=== PATIENT | female | born 1945 | race Caucasian/White ===

== ENCOUNTER 2017-08-14 17:54 | Emergency (ER) | payer MEDICARE, OTHER ==
--- NOTE | 2017-08-14 18:12 | ERNOTE ---
Lower Extremity HPI - Narrative Date of Service: 08/14/17 - General Lower Extremities Pain: 2nd toe: left - Patient denies any pain whatsoever. Time Seen by Provider: 08/14/17 18:04 Source: patient, EMS Exam Limitations: no limitations - Immun/Allergies/Home Medications Immunizations: IMMUNIZATION HX Immunizations Up to Date Yes History of Influenza Vaccine Yes Hx Pneumococcal Vaccination No Allergies/Adverse Reactions: Allergies Allergy/AdvReac Type Severity Reaction Status Date / Time amitriptyline [Amitriptyline] Allergy Intermediate Other Verified 08/26/16 11:18 Penicillins Allergy Intermediate Other Verified 08/26/16 11:18 duloxetine HCl Allergy Verified 08/26/16 11:18 [From Cymbalta] duloxetine [Duloxetine] AdvReac Intermediate Other Verified 08/26/16 11:18 nortriptyline [Nortriptyline] AdvReac Intermediate Other Verified 08/26/16 11:18 tramadol AdvReac Intermediate Nausea Verified 08/26/16 11:18 gemfibrozil [Gemfibrozil] AdvReac Mild Nausea Verified 08/26/16 11:18 morphine AdvReac Mild Vomiting Verified 08/26/16 11:18 oxycodone HCl [From Percocet] AdvReac Verified 08/26/16 11:18 propoxyphene napsylate AdvReac Verified 08/26/16 11:18 [From Darvocet-N] Home Medications: HOME MEDICATIONS Allopurinol [Zyloprim] 300 mg PO DAILY 12/09/12 [Last Taken 09/01/14] Venlafaxine HCl [Effexor Xr] 150 mg PO DAILY 02/03/13 [Last Taken 09/01/14] Carbidopa/Levodopa 25/100 [Sinemet 25/100] 1.5 tab PO TID 04/19/13 [Last Taken 09/01/14] Cholecalciferol [Vitamin D] 2,000 unit PO DAILY #0 capsule 04/29/13 [Last Taken 09/01/14] Metoprolol Tartrate [Lopressor] 100 mg PO BID #0 tablet 05/08/13 [Last Taken 03/10] Sennosides/Docusate Sodium [Senokot-S] 2 tab PO BID 09/01/14 [Last Taken ] Cyanocobalamin [Vitamin B-12] 1,000 mcg PO DAILY 09/02/14 [Last Taken 09/01/14] Polyethylene Glycol 3350 [Miralax] 17 gm PO BID PRN 09/02/14 [Last Taken Unknown ] Menthol [Biofreeze] 1 appl TP QID 09/03/14 [Last Taken Unknown] buPROPion HCL [Wellbutrin Sr, Zyban] 150 mg PO BID 09/03/14 [Last Taken Unknown] Furosemide [Lasix] 80 mg PO BID 08/26/16 [Last Taken Unknown] Hydrochlorothiazide [Microzide] 12.5 mg PO DAILY 08/26/16 [Last Taken Unknown] Insulin Detemir [Levemir] 110 unit SQ BID 08/26/16 [Last Taken Unknown] Levothyroxine Sodium [Synthroid] 125 mcg PO DAILY 08/26/16 [Last Taken Unknown] Magnesium Hydroxide [Milk of Magnesia] 15 ml PO DAILY PRN 08/26/16 [Last Taken Unknown] Omeprazole 40 mg PO DAILY 08/26/16 [Last Taken Unknown] Pazopanib HCl [Votrient] 800 mg PO DAILY 08/26/16 [Last Taken Unknown] Pregabalin [Lyrica] 50 mg PO BID 08/26/16 [Last Taken Unknown] ALPRAZolam [Xanax] 1 mg PO BID PRN #60 tablet 08/31/16 [Last Taken Unknown] Acetaminophen [Tylenol] 1,000 mg PO Q8H PRN #0 tablet 08/31/16 [Last Taken Unknown] Divalproex Sodium [Depakote ER] 250 mg PO DAILY tab.sr.24h 08/31/16 [Last Taken Unknown] Enoxaparin Sodium [Lovenox] 40 mg SC Q24H #30 disp.syrin 08/31/16 [Last Taken Unknown] Ferrous Sulfate 325 mg PO BID #60 tablet 08/31/16 [Last Taken Unknown] Insulin Lispro [Humalog] 0 - 30 units SQ ACHS 30 Days vial 08/31/16 [Last Taken Unknown] Lisinopril [Zestril] 20 mg PO BID #60 tablet 08/31/16 [Last Taken Unknown] Multivitamins [Multivitamin Shen] 1 cap PO DAILY #30 capsule 08/31/16 [Last Taken Unknown] Psyllium Husk (with Sugar) [Metamucil] 1 each PO DAILY packet 08/31/16 [Last Taken Unknown] oxyCODONE HCL/ACETAMINOPHEN [Percocet 5 MG/325 MG] 1 tab PO QID PRN #100 tablet 08/31/16 [Last Taken Unknown] - History of Present Illness Narrative: RESEARCH RN SPEC felt that the left 2nd digit was bruised and should be evaluated. Patient states she wished to wait until Wednesday but RESEARCH RN SPEC felt it should be done tonight. States she has had a discolored toe for weeks which will become a deeper purple after having shoes on during the day but will lighten up by morning. Denies any pain or loss of sensation. States she has not injured the toe. States she has no changes of the toe today. Occurred: other - Several weeks ago began to turn purple. Method of Injury: Reports: other - No injury Reason for Fall: Reports: other - No fall. Usually resides in wheel chair but will stand and pivot. Modifying Factors - (Improves): Reports: other - Will be less purple with rest and leg elevation. Modifying Factors - (Worsens): Reports: other - Becomes darker purple with the foot dependent. Associated Symptoms: Reports: none Other Injuries: Reports: none Subsequent Symptoms: Reports: other - No sensory or motor loss. Review of Systems - Narrative Narrative: Patient is denying any symptoms. States she has complete feeling in her toes and denies any pain or trauma. Denies any other symptoms whatsoever. - Review of Systems Constitutional: Present: no symptoms reported Respiratory: Present: no symptoms reported Cardiology: Present: no symptoms reported Gastrointestinal/Abdominal: Present: other - States she has an annoying abdominal hernia without discomfort. Musculoskeletal: Present: other - States she has not ambulated since her left femur fracture exactly 1 yr ago. Skin: Present: other - Ecchymosis without pain or trauma of the left 2nd toe. Denies any loss of sensation Endocrine: Present: no symptoms reported Hematologic/Lymphatic: Present: easy bruising - Patient's Past Medical History Patient History - Medical: Anemia, Diabetes Type 2, Depression, GERD, Obesity, Osteoarthritis Patient History - Cardiac/Respiratory: No pertinent hx Patient History - Cancer: Kidney Patient History - Surgical Procedures: Back Surgery, Total Knee Replacement Patient History - Other: None LMP (females 10-50): Menopausal - Family History Father Family History - Medical: Mother Family History - Medical: - Social History Living Situations: long term Psych History: Hx of Depression - Immunizations Immunizations Up to Date: Yes Hx Pneumococcal Vaccination: No History of Influenza Vaccine: Yes Physical Exam - Physical Exam Narrative: No signs of trauma or other complications involving the toe. General Appearance: Present: wd/wn, alert, no apparent distress Respiratory: Present: no respiratory distress Extremity Exam: Present: non-tender, normal range of motion, other - Patient has ecchymosis extending from the MTP joint up into the IP joint. Patient has complete pain free ROM with no abnormal bony structure noted. Am able to manually manipulate the toe with no grimacing or discomfort from the patient. No ulceration found. Sensation completely intact. Toe is not cold nor hot. No redness. Cap refill <2 seconds. Neurological Exam: Present: alert, normal mood/affect, other - No focal deficits. Skin Exam: Present: warm/dry - Echymosis as described above. No other indications of complications. ED Progress - Vital Signs Patient's Vital Signs:: I have reviewed the patient's vital signs. Vital Signs: Vital Signs 08/14/17 17:57 Temperature 36.7 C Pulse Rate 98 Respiratory 15 Rate Blood Pressure 119/74 O2 Sat by Pulse 97 Oximetry - Progress/Reassessment Chief Complaint: Lower Extremity Pain/ Injury Progress:: Unchanged Progress Note-Subjective: 08/14/17 18:42 No acute intervention needed. Departure Clinical Impression: Ecchymosis on examination - Departure Disposition: Home Follow Up Needed Condition: Good Additional Instructions: No indication of any injury, loss of circulation, ulceration or other complication. No further testing needed at this time. Follow up with family provider in 2-3 days. Sooner if needed. Keep both legs elevated as much as possible. Referrals: Rob Montaño MD [Primary Care Provider] -
[2017-08-14 18:38] VITALS: BP 142/53
== END 2017-08-14 19:17 | disposition home or self-care (01) ==
LOC: ER 17:54
DX: S90.12 Contusion of lesser toe without damage to nail (principal)

== ENCOUNTER 2017-11-26 17:04 | Emergency (ER) | payer MEDICARE, OTHER ==
[2017-11-26] MEDS ORDERED: DIAZEPAM 5 MG/ML SYRG IV ONE (17:16)
[2017-11-26] MEDS ORDERED: KETOROLAC TROMETHAMINE 30 MG/ML VIAL IV ONE (17:18)
[2017-11-26] MEDS ORDERED: ORPHENADRINE CITRATE 30 MG/ML VIAL IV ONE (17:18)
[2017-11-26] MEDS ORDERED: LORazepam 2 MG/ML DISP.SYRIN IV ONE (17:19)
[2017-11-26] MEDS ORDERED: LORazepam 2 MG/ML DISP.SYRIN ONE (17:21)
[2017-11-26] MEDS ORDERED: ORPHENADRINE CITRATE 30 MG/ML VIAL ONE (17:21)
[2017-11-26] MEDS ORDERED: KETOROLAC TROMETHAMINE 30 MG/ML VIAL ONE (17:21)
--- NOTE | 2017-11-26 17:27 | ERNOTE ---
Back Pain ER HPI Presenting Symptoms: hx chronic back pain Time Seen by Provider: 11/26/17 17:09 Source: patient, EMS Exam Limitations: no limitations Immunizations: IMMUNIZATION HX Immunizations Up to Date Yes History of Influenza Vaccine Yes Hx Pneumococcal Vaccination Yes Allergies/Adverse Reactions: Allergies amitriptyline [Amitriptyline] Allergy (Intermediate, Verified 08/26/16 11:18) Other "makes crazy" Penicillins Allergy (Intermediate, Verified 08/26/16 11:18) Other rash duloxetine HCl [From Cymbalta] Allergy (Verified 08/26/16 11:18) duloxetine [Duloxetine] Adverse Reaction (Intermediate, Verified 08/26/16 11:18) Other palpatations dizziness nortriptyline [Nortriptyline] Adverse Reaction (Intermediate, Verified 08/26/16 11:18) Other "makes crazy" tramadol Adverse Reaction (Intermediate, Verified 08/26/16 11:18) Nausea gemfibrozil [Gemfibrozil] Adverse Reaction (Mild, Verified 08/26/16 11:18) Nausea diarrhea morphine Adverse Reaction (Mild, Verified 08/26/16 11:18) Vomiting oxycodone HCl [From Percocet] Adverse Reaction (Verified 08/26/16 11:18) propoxyphene napsylate [From Darvocet-N] Adverse Reaction (Verified 08/26/16 11: 18) Home Medications: HOME MEDICATIONS Allopurinol [Zyloprim] 300 mg PO DAILY 12/09/12 [Last Taken 09/01/14] Venlafaxine HCl [Effexor Xr] 150 mg PO DAILY 02/03/13 [Last Taken 09/01/14] Carbidopa/Levodopa 25/100 [Sinemet 25/100] 1.5 tab PO TID 04/19/13 [Last Taken 09/01/14] Cholecalciferol [Vitamin D] 2,000 unit PO DAILY #0 capsule 04/29/13 [Last Taken 09/01/14] Metoprolol Tartrate [Lopressor] 100 mg PO BID #0 tablet 05/08/13 [Last Taken 03/10] Sennosides/Docusate Sodium [Senokot-S] 2 tab PO BID 09/01/14 [Last Taken ] Cyanocobalamin [Vitamin B-12] 1,000 mcg PO DAILY 09/02/14 [Last Taken 09/01/14] Polyethylene Glycol 3350 [Miralax] 17 gm PO BID PRN 09/02/14 [Last Taken Unknown ] Menthol [Biofreeze] 1 appl TP QID 09/03/14 [Last Taken Unknown] buPROPion HCL [Wellbutrin Sr, Zyban] 150 mg PO BID 09/03/14 [Last Taken Unknown] Furosemide [Lasix] 80 mg PO BID 08/26/16 [Last Taken Unknown] Hydrochlorothiazide [Microzide] 12.5 mg PO DAILY 08/26/16 [Last Taken Unknown] Insulin Detemir [Levemir] 110 unit SQ BID 08/26/16 [Last Taken Unknown] Levothyroxine Sodium [Synthroid] 125 mcg PO DAILY 08/26/16 [Last Taken Unknown] Magnesium Hydroxide [Milk of Magnesia] 15 ml PO DAILY PRN 08/26/16 [Last Taken Unknown] Omeprazole 40 mg PO DAILY 08/26/16 [Last Taken Unknown] Pazopanib HCl [Votrient] 800 mg PO DAILY 08/26/16 [Last Taken Unknown] Pregabalin [Lyrica] 50 mg PO BID 08/26/16 [Last Taken Unknown] ALPRAZolam [Xanax] 1 mg PO BID PRN #60 tablet 08/31/16 [Last Taken Unknown] Acetaminophen [Tylenol] 1,000 mg PO Q8H PRN #0 tablet 08/31/16 [Last Taken Unknown] Divalproex Sodium [Depakote ER] 250 mg PO DAILY tab.sr.24h 08/31/16 [Last Taken Unknown] Enoxaparin Sodium [Lovenox] 40 mg SC Q24H #30 disp.syrin 08/31/16 [Last Taken Unknown] Ferrous Sulfate 325 mg PO BID #60 tablet 08/31/16 [Last Taken Unknown] Insulin Lispro [Humalog] 0 - 30 units SQ ACHS 30 Days vial 08/31/16 [Last Taken Unknown] Lisinopril [Zestril] 20 mg PO BID #60 tablet 08/31/16 [Last Taken Unknown] Multivitamins [Multivitamin Shen] 1 cap PO DAILY #30 capsule 08/31/16 [Last Taken Unknown] Psyllium Husk (with Sugar) [Metamucil] 1 each PO DAILY packet 08/31/16 [Last Taken Unknown] oxyCODONE HCL/ACETAMINOPHEN [Percocet 5 MG/325 MG] 1 tab PO QID PRN #100 tablet 08/31/16 [Last Taken Unknown] Narrative: Patient comes in from the [facility] facility having a panic attack. Patient has chronic low back pain that has been following her for quite some time and that always presents itself as a problem. She has chronic paraspinal spasm that is present today as well. He rates the pain at her usual baseline with flares up and perhaps a 7/10. Her primary complaint is tomorrow' s coming up on would be her 45th anniversary of marriage to her and she has been perseverating over that and in at least moderate to severe emotional distress. Timing: Reports: constant Quality/Severity: Reports: moderate, severe Location of pain: Reports: lower back Activities at Onset: Reports: emotional stress Recent Injury?: Reports: no Possible Precipitating Factor: Reports: none Modifying Factors - (Improves): Reports: nothing Modifying Factors - (Worsens): Reports: nothing Review of Systems - Review of Systems Constitutional: Present: See HPI EYE: Present: no symptoms reported ENT: Present: no symptoms reported Respiratory: Present: no symptoms reported Cardiology: Present: no symptoms reported Gastrointestinal/Abdominal: Present: no symptoms reported Genitourinary: Present: no symptoms reported Musculoskeletal: Present: See HPI Skin: Present: no symptoms reported Neurological: Present: no symptoms reported Endocrine: Present: no symptoms reported Hematologic/Lymphatic: Present: no symptoms reported Psych: Present: anxiety, emotional problems - Patient's Past Medical History Patient History - Medical: Anemia, Anxiety, Diabetes Type 2, Depression, GERD, Obesity, Osteoarthritis, Other - chronic back pain Patient History - Cardiac/Respiratory: No pertinent hx Patient History - Cancer: Kidney Patient History - Surgical Procedures: Back Surgery, Total Knee Replacement Patient History - Other: None LMP (females 10-50): Menopausal - Family History Father Family History - Medical: Mother Family History - Medical: - Social History Living Situations: assisted living Psych History: Hx of Depression Smoking Status: Former smoker Have you smoked in the past 12 months: No Do you dip or chew tobacco: No Alcohol Use: none Drug Use: none - Immunizations Immunizations Up to Date: Yes Hx Pneumococcal Vaccination: Yes History of Influenza Vaccine: Yes Physical Exam - Physical Exam General Appearance: Present: wd/wn, alert, moderate distress Head Exam: Present: normal inspection, no evidence of injury Eye Exam: Normal inspection: bilateral, PERRL: bilateral Ears, Nose, Throat: Present: normal ENT inspection, H, normal pharynx Neck: Present: normal inspection, nontender Respiratory: Present: no respiratory distress, normal breath sounds, no accessory muscle use, chest nontender, lungs clear Cardiovascular/Chest: Present: regular rate, rhythm, no murmur, normal peripheral pulses Gastrointestinal/Abdominal: Present: normal bowel sounds, nontender, nondistended, soft, no organomegaly Rectal Exam: Present: deferred Back Exam: Present: normal inspection, normal range of motion Extremity Exam: Present: normal inspection, non-tender, no edema, normal range of motion Neurological Exam: Present: alert, oriented, normal mood/affect, other - patient is having a panic attack Skin Exam: Present: normal color, warm/dry Lymphatic Exam: Present: no adenopathy ED Progress - Vital Signs Patient's Vital Signs:: I have reviewed the patient's vital signs. Vital Signs: Vital Signs 11/26/17 17:09 Temperature 37 C Pulse Rate 73 Respiratory 24 H Rate Blood Pressure 101/83 O2 Sat by Pulse 100 Oximetry - Progress/Reassessment Chief Complaint: Back Pain Progress:: Improved Plan - Plan Plan: Patient's back pain was considerably better with Toradol and Norflex and her panic attack resolved after 1 mg of Ativan. Patient will be returned to the care facility with a prescription for Xanax 1 mg twice a day and Flexeril 10 mg twice a day. All further medication will be under the direction of her family doctor. Departure Clinical Impression: Panic attack Chronic back pain Qualifiers: Back pain location: low back pain Back pain laterality: bilateral Sciatica presence: without sciatica Qualified Code(s): M54.5 - Low back pain; G89.29 - Other chronic pain; G89.29 - Other chronic pain - Departure Disposition: Nursing Facility, Not [facility] Condition: Good Instructions: Chronic Back Pain, Panic Attacks, [id number] Referrals: Declan Rivas DO [Primary Care Provider] -
[2017-11-26 19:05] VITALS: BP 140/74
== END 2017-11-26 19:03 ==
LOC: ER 17:04
DX: Z87.891 Personal history of nicotine dependence; M54.5 Low back pain; F41.0 Panic disorder [episodic paroxysmal anxiety]; G89.29 Other chronic pain; Z85.528 Personal history of other malignant neoplasm of kidney

== ENCOUNTER 2018-04-05 11:40 | Observation (INO) | payer MEDICARE, OTHER ==
[2018-04-05 12:28] LABS: Hematocrit 29.6 % (37.0-47.0); Hemoglobin 9.3 gm/dL (12.5-16.0); Mean Cell Volume 101.4 fl (78-100); Mean Corpuscular Hemoglobin 31.8 pg (27-31); Mean Corpuscular Hgb Conc 31.4 g/dl (32-36); Mean Platelet Volume 10.2 fl (8-12.5); Platelet Count 203 K/mm3 (150-450); Red Blood Count 2.92 M/mm3 (4.2-5.4); Red Cell Distribution Width 18.3 % (11.5-14.0); White Blood Count 13.2 K/mm3 (4.0-10.5)
[2018-04-05 12:30] LABS: Total Cells Counted 100
[2018-04-05 12:44] LABS: ALT 27 U/L (19-67); AST 25 U/L (0-48); Alkaline Phosphatase * 126 U/L (50-170); Anion Gap 10.4 mmol/L (6.8-13.8); BNP * 1865 pg/mL (5-325); BUN/Creatinine Ratio 24.2 (9.0-21.6); Bilirubin, Total 0.5 mg/dL (0.0-1.1); Blood Urea Nitrogen 22 mg/dL (3-23); Ca. Corrected For Albumin 10.2 mg/dL (8.4-10.2); Calcium * 9.7 mg/dL (7.9-10.9); Carbon Dioxide 34.5 mmol/L (24-32.6); Chloride 95 mmol/L (97-106); Glucose * 147 mg/dL (70-110); Potassium 2.9 mmol/L (3.4-4.6); Sodium 137 mmol/L (132-142); Total Protein 6.7 gm/dL (6.2-8.2); Troponin I Less than 0.017 ng/ml (0.00-0.10)
[2018-04-05 13:02] LABS: Band 6 % (0-2.0); Eosinophil 3 % (0-3); Lymphocyte 14 % (20-51); Monocyte 9 % (0-9); Neutrophil 68 % (42-75)
[2018-04-05 13:03] LABS: Anisocytosis 1+; Hypersegmented Polys Trace; Hypochromia 1+; Target Cells 2+
[2018-04-05 13:04] LABS: Macrocytosis 2+; Platelet Estimate Normal (NORMAL); Polychromasia 1+
[2018-04-05] MEDS ORDERED: FUROSEMIDE 10 MG/ML VIAL IV ONE (14:17)
[2018-04-05] MEDS ORDERED: POTASSIUM CHLORIDE 20 MEQ TABLET.SA PO ONE (14:17)
--- NOTE | 2018-04-05 14:27 | ERNOTE ---
Dyspnea - Date Date of Service: 04/05/18 - General Presenting Symptoms: other - Weight gain Time Seen by Provider: 04/05/18 11:55 Source: patient, RN notes reviewed Exam Limitations: no limitations - Immun/Allergies/Home Medications Immunizations: IMMUNIZATION HX Immunizations Up to Date Yes History of Influenza Vaccine Yes Hx Pneumococcal Vaccination Yes Allergies/Adverse Reactions: Allergies amitriptyline [Amitriptyline] Allergy (Intermediate, Verified 08/26/16 11:18) Other "makes crazy" Penicillins Allergy (Intermediate, Verified 08/26/16 11:18) Other rash duloxetine HCl [From Cymbalta] Allergy (Verified 08/26/16 11:18) duloxetine [Duloxetine] Adverse Reaction (Intermediate, Verified 08/26/16 11:18) Other palpatations dizziness nortriptyline [Nortriptyline] Adverse Reaction (Intermediate, Verified 08/26/16 11:18) Other "makes crazy" tramadol Adverse Reaction (Intermediate, Verified 08/26/16 11:18) Nausea gemfibrozil [Gemfibrozil] Adverse Reaction (Mild, Verified 08/26/16 11:18) Nausea diarrhea morphine Adverse Reaction (Mild, Verified 08/26/16 11:18) Vomiting oxycodone HCl [From Percocet] Adverse Reaction (Verified 08/26/16 11:18) propoxyphene napsylate [From Darvocet-N] Adverse Reaction (Verified 08/26/16 11: 18) Home Medications: HOME MEDICATIONS ALPRAZolam [Xanax] 1 mg PO DAILY 12/31/17 [Last Taken Unknown] Acetaminophen [Tylenol] 1,000 mg PO Q8H PRN 12/31/17 [Last Taken Unknown] Allopurinol [Zyloprim (Allopurinol)] 100 mg PO DAILY 12/31/17 [Last Taken Unknown] Bupropion HCl [Bupropion HCl ER] 150 mg PO DAILY 12/31/17 [Last Taken Unknown] Calcium Carbonate [Calcium] 1 tab PO TID 12/31/17 [Last Taken Unknown] Cholecalciferol (Vitamin D3) [Vitamin D3] 50,000 unit PO FR 12/31/17 [Last Taken Unknown] Clonidine HCl [Clonidine HCl ER] 1 tab PO BID 12/31/17 [Last Taken Unknown] Cyclobenzaprine HCl 10 mg PO BID 12/31/17 [Last Taken Unknown] Fluticasone Propionate [Flonase Allergy Relief] 1 spray NS DAILY 12/31/17 [Last Taken Unknown] Furosemide [Lasix] 80 mg PO BID 12/31/17 [Last Taken Unknown] Insulin Detemir [Levemir] 90 units SC BID 12/31/17 [Last Taken Unknown] Insulin Regular, Human [Novolin R] 12 units SC TID 12/31/17 [Last Taken Unknown] Insulin Regular, Human [Novolin R] See Protocol SC ACHS 12/31/17 [Last Taken Unknown] Levothyroxine Sodium [Levoxyl] 125 mcg PO QAM 12/31/17 [Last Taken Unknown] Magnesium Hydroxide [Milk Of Magnesia] 30 ml PO 3XW 12/31/17 [Last Taken Unknown ] Menthol [[place] Cough Drops] 1 lozenge MM PRN PRN 12/31/17 [Last Taken Unknown] Metoprolol Tartrate 50 mg PO BID 12/31/17 [Last Taken Unknown] Multivitamin with Minerals [Multivitamins with Minerals] 1 each PO DAILY [Last Taken Unknown] Omeprazole 40 mg PO QAM 12/31/17 [Last Taken Unknown] Potassium Chloride 20 meq PO BID 12/31/17 [Last Taken Unknown] Pregabalin [Lyrica] 50 mg PO DAILY 12/31/17 [Last Taken Unknown] Sennosides/Docusate Sodium [Senna-Docusate Sodium Tablet] 2 tab PO BID 12/31/17 [Last Taken Unknown] Sodium Chloride [Saline Nose [place]] 1 spray NS QPM 12/31/17 [Last Taken Unknown] Venlafaxine HCl [Venlafaxine HCl ER] 75 mg PO QAM 12/31/17 [Last Taken Unknown] hydrALAZINE HCL [Hydralazine HCl] 50 mg PO QID 12/31/17 [Last Taken Unknown] hydrocodone 5 mg-acetaminophen 325 mg tablet 2 tab PO Q6H PRN #120 tab 04/04/18 [Last Taken Unknown] Ibuprofen [Motrin] 800 mg PO TID 04/05/18 [Last Taken Unknown] Menthol [Biofreeze] 1 appl TP BID PRN 04/05/18 [Last Taken Unknown] Metolazone [Zaroxolyn] 5 mg PO 04/05/18 [Last Taken Unknown] Polyethylene Glycol 3350 [Miralax] 17 gm PO DAILY 04/05/18 [Last Taken Unknown] Saliva Stimulant Agents Comb.3 [Biotene Moisturizing Mouth] 1 spray PO DAILY PRN 04/05/18 [Last Taken Unknown] - History of Present Illness Narrative: 72 year old female brought to the ED by EMS from [facility] for shortness of breath and a 20 pound in the past 2 weeks. She has gained 6 pounds in the past 6 days. She states she is feeling a little better with some oxygen on. She states that she has more swelling in her legs than normal and that her abdomen seems bloated. She recently had a uterine fibroid removed at [facility]. She has uterine cancer and has follow up scheduled there tomorrow. Treatment [employer]: paramedics, oxygen Initiating event: Reports: unknown Frequency of episodes: Reports: no prior episodes Modifying Factors - (Improves): Reports: oxygen, rest Modifying Factors (Worsens): Reports: activity Associated Symptoms-Dyspnea: Reports: ankle/leg swelling. Denies: fever/chills , chest pain/discomfort, wheezing, leg/calf pain, dizziness, anxiety Review of Systems - Review of Systems Constitutional: Present: fatigue. Absent: fever, malaise EYE: Present: no symptoms reported ENT: Absent: nose congestion, sore throat Respiratory: Present: See HPI Cardiology: Present: See HPI Gastrointestinal/Abdominal: Present: constipation, abdominal pain. Absent: vomiting, diarrhea Genitourinary: Absent: dysuria, hematuria Musculoskeletal: Present: no symptoms reported Skin: Absent: rash, lesions Neurological: Absent: headache, dizziness/light-headedness Endocrine: Present: no symptoms reported Hematologic/Lymphatic: Absent: easy bruising, easy bleeding Psych: Present: See HPI Medical History (Last Updated 04/05/18 @ 14:24 by Autumn Smallwood NP) Obesity Social History: Preferred Language Persian Smoking Status Never smoker Abuse History No History of abuse Psych History Hx of Depression Alcohol Use rarely Drug Use none Physical Exam - Physical Exam General Appearance: Present: alert, no apparent distress, obese - Morbid Head Exam: Present: normal inspection Eye Exam: Normal inspection: bilateral Ears, Nose, Throat: Present: normal ENT inspection, normal pharynx Neck: Present: normal inspection, nontender, supple Respiratory: Present: no respiratory distress, no accessory muscle use, decreased breath sounds - d/t large body habitus Cardiovascular/Chest: Present: regular rate, rhythm, no murmur Gastrointestinal/Abdominal: Present: soft, tenderness - diffuse, distended - obese Extremity Exam: Present: non-tender, extremity edema - bilateral lower legs, ankles, feet Neurological Exam: Present: alert, oriented, normal mood/affect, no motor/ sensory deficits Skin Exam: Present: warm/dry, pallor ED Progress - Results and Orders Patient's Lab Results:: I have reviewed the patient's lab results. - Vital Signs Patient's Vital Signs:: I have reviewed the patient's vital signs. Vital Signs: Vital Signs 04/05/18 11:45 04/05/18 12:30 04/05/18 12:38 Temperature 36.8 C Pulse Rate 81 83 81 Respiratory Rate 11 L 19 Blood Pressure 112/57 O2 Sat by Pulse Oximetry 100 95 04/05/18 13:06 04/05/18 14:00 Temperature Pulse Rate 84 84 Respiratory Rate 20 22 H Blood Pressure 166/51 H O2 Sat by Pulse Oximetry 98 94 - X-Ray X-Ray #1 X-Ray: chest Interpretation: Reviewed by me X-ray Comments: Acute CHF exacerbation / pulmonary edema X-Ray #2 X-Ray: abdomen Interpretation: Reviewed by me X-ray Comments: Severe fecal retention without evidence of obstruction - Progress/Reassessment Chief Complaint: Dyspnea Progress:: Improved Plan - Plan Plan: BNP is 1865, last reading was 143 approximately 2 years ago. Her potassium is also low at 2.9. Her chest xray does show acute CHF. Her abdominal film shows severe constipation. The patient states this has been a problem for some time. She routinely takes milk of magnesia and Miralax. Dr. Rivas was contacted and the patient will be admitted to observation status on med/surg. She was given Lasix 40 mg IVP and K-dur 40 mEq prior in the ED. Departure Clinical Impression: Hypokalemia Congestive heart failure Qualifiers: Heart failure type: unspecified Heart failure chronicity: acute Qualified Code( s): I50.9 - Heart failure, unspecified Constipation Qualifiers: Constipation type: unspecified constipation type Qualified Code(s): K59.00 - Constipation, unspecified - Departure Disposition: Still a patient Condition: Stable
[2018-04-05] MEDS ORDERED: FUROSEMIDE 10 MG/ML VIAL ONE (14:45)
[2018-04-05] MEDS ORDERED: POTASSIUM CHLORIDE 20 MEQ TABLET.SA ONE (14:45)
[2018-04-05] MEDS ORDERED: HYDROcodone/ACETAMINOPHEN 1 EACH TABLET PO PRN (20:23)
[2018-04-05] MEDS ORDERED: ACETAMINOPHEN 500 MG TABLET PO PRN (20:23)
[2018-04-05] MEDS ORDERED: MAGNESIUM HYDROXIDE 30 ML UDC PO PRN (20:23)
--- NOTE | 2018-04-05 21:02 | HP ---
<Kathy Neely - Last Filed: 04/06/18 02:38> Chief Complaint - Chief Complaint Date of Service: 04/05/18 Time of Service: 21:01 Chief Complaint: " SOB, Leg redness". Source of HPI- Pt; reliable, ERP report. History of Present Illness: Ms. Herzog is a 72-yr-old [place] pt of Dr. Declan Rivas with a PMH of: Anemia, Anxiety,[place]coat Renetta Foot Disease, Depression, DM II, GERD, Gout, HTN, HLD, Osteoarthritis, Parkinsonism, Renal Cell Carcinoma, Spinal Stenosis & Urinary retention. Pt reports that for the last 2 days, she has progressively gotten SOB. Last night was worse during sleep and "it hurt to breath in and out." She reports having chills. She denies coughing, n/v, abdominal pain & diarrhea but told ERP that she had felt bloated for days. She also states that she has had increasing redness on her legs and swelling and she noticed it yesterday. It was reported that she has had a 6 lb weight gain within about 1 week. Her legs are erythemic and tender to touch. Work-up at the ED involved CXR which showed worsening pulmonary edema. An abdominal X-ray showed severe fecal retention without evidence of obstruction. Significant abnormal labs were: WBC of 13,200 with 6 bands, BNP--> 1865, K--> 2.9. She was given Lasix 40 mg IVP & 40 kcl at the ED. She will be admitted due to acute exacerbation for CHF which will respond well to the IV diuretics and also due to Cellulitis of the BLE. Medical History (Last Updated 04/05/18 @ 18:55 by Mary Atkinson RN) Altered mental status Anemia Anxiety Anxiety disorder Benign neoplasm of kidney Complex regional pain syndrome Dementia Depression Diabetes mellitus type 2 in obese Eczema Eczema Encephalopathy Encephalopathy Fronto-temporal dementia GERD (gastroesophageal reflux disease) Gastro-esophageal reflux Gout Gout History of femur fracture Hyperlipidemia Hypertension Hyponatremia Hypovolemia Intervertebral disc disorder Major depressive disorder Malignant neoplasm of kidney Morbid obesity Obesity Osteoarthritis Polyosteoarthritis Spinal stenosis TIA (transient ischemic attack) Urinary retention Surgical History: Surgical History (Last Updated 04/05/18 @ 18:55 by Mary Atkinson RN) H/O thyroidectomy History of hernia repair History of total right knee replacement Family History: Family History (Last Updated 04/05/18 @ 18:56 by Mary Atkinson RN) Mother Unknown family medical history Father Unknown family medical history Social History: Patient Lives/Resources [facility] Utilized Occupation retired Preferred Language Nauruan Do you have any episcopal or Yes: [employer] [facility] [place] preference? Smoking Status Former smoker Have you smoked in the past 12 No months Do you dip or chew tobacco No Abuse History No History of abuse Psych History Hx of Depression Alcohol Use rarely Drug Use none Review Of Systems (GEN) - Review of Systems Generalized/Overall Review: Present: Chills, Fever. Absent: Weakness EENTM: Absent: Eye Pain, Blurred Vision, Double Vision Respiratory: Present: Cough, Shortness of Breath Cardiac: Present: Edema. Absent: Chest Pain, Palpitations, Syncope Abdominal: Present: Abdominal Pain. Absent: Nausea, Vomiting, Hematemesis Genitourinary: Absent: Burning, Itching, Urgency, Hematuria Musculoskeletal: Present: Joint Pain, Back Pain Neurological: Present: Headache, Anxiety, Depressed Skin: Present: Dryness, Other - Redness of BLE. Endocrine: Present: Intolerance to Cold, Flushing Misc: All systems neg except as marked Immunizations: IMMUNIZATION HX Immunizations Up to Date Yes History of Influenza Vaccine Yes Hx Pneumococcal Vaccination Yes Allergies/Adverse Reactions: Allergies Allergy/AdvReac Type Severity Reaction Status Date / Time amitriptyline [Amitriptyline] Allergy Intermediate Other Verified 04/05/18 19:27 Penicillins Allergy Intermediate Other Verified 04/05/18 19:27 duloxetine HCl Allergy Verified 04/05/18 19:27 [From Cymbalta] duloxetine [Duloxetine] AdvReac Intermediate Other Verified 04/05/18 19:27 nortriptyline [Nortriptyline] AdvReac Intermediate Other Verified 04/05/18 19:27 tramadol AdvReac Intermediate Nausea Verified 04/05/18 19:27 gemfibrozil [Gemfibrozil] AdvReac Mild Nausea Verified 04/05/18 19:27 morphine AdvReac Mild Vomiting Verified 04/05/18 19:27 oxycodone HCl [From Percocet] AdvReac Verified 04/05/18 19:27 propoxyphene napsylate AdvReac Verified 04/05/18 19:27 [From Darvocet-N] Home Medications: HOME MEDICATIONS ALPRAZolam [Xanax] 1 mg PO DAILY 12/31/17 [Last Taken Unknown] Acetaminophen [Tylenol] 1,000 mg PO Q8H PRN 12/31/17 [Last Taken Unknown] Allopurinol [Zyloprim (Allopurinol)] 100 mg PO DAILY 12/31/17 [Last Taken Unknown] Bupropion HCl [Bupropion HCl ER] 150 mg PO DAILY 12/31/17 [Last Taken Unknown] Calcium Carbonate [Calcium] 1 tab PO TID 12/31/17 [Last Taken Unknown] Cholecalciferol (Vitamin D3) [Vitamin D3] 50,000 unit PO FR 12/31/17 [Last Taken Unknown] Clonidine HCl [Clonidine HCl ER] 1 tab PO BID 12/31/17 [Last Taken Unknown] Cyclobenzaprine HCl 10 mg PO BID 12/31/17 [Last Taken Unknown] Fluticasone Propionate [Flonase Allergy Relief] 1 spray NS DAILY 12/31/17 [Last Taken Unknown] Furosemide [Lasix] 80 mg PO BID 12/31/17 [Last Taken Unknown] Insulin Detemir [Levemir] 90 units SC BID 12/31/17 [Last Taken Unknown] Insulin Regular, Human [Novolin R] 12 units SC TID 12/31/17 [Last Taken Unknown] Insulin Regular, Human [Novolin R] See Protocol SC ACHS 12/31/17 [Last Taken Unknown] Levothyroxine Sodium [Levoxyl] 125 mcg PO DAILY 12/31/17 [Last Taken Unknown] Magnesium Hydroxide [Milk Of Magnesia] 30 ml PO 3XW 12/31/17 [Last Taken Unknown ] Menthol [[place] Cough Drops] 1 lozenge MM PRN PRN 12/31/17 [Last Taken Unknown] Metoprolol Tartrate 50 mg PO BID 12/31/17 [Last Taken Unknown] Multivitamin with Minerals [Multivitamins with Minerals] 1 each PO DAILY [Last Taken Unknown] Omeprazole 40 mg PO DAILY 12/31/17 [Last Taken Unknown] Potassium Chloride 20 meq PO BID 12/31/17 [Last Taken Unknown] Pregabalin [Lyrica] 50 mg PO DAILY 12/31/17 [Last Taken Unknown] Sennosides/Docusate Sodium [Senna-Docusate Sodium Tablet] 2 tab PO BID 12/31/17 [Last Taken Unknown] Sodium Chloride [Saline Nose [place]] 1 spray NS HS 12/31/17 [Last Taken Unknown] Venlafaxine HCl [Venlafaxine HCl ER] 75 mg PO DAILY 12/31/17 [Last Taken Unknown ] hydrALAZINE HCL [Hydralazine HCl] 50 mg PO QID 12/31/17 [Last Taken Unknown] Bupropion HCl 150 mg PO Q2D 04/05/18 [Last Taken 04/03/18] HYDROcodone/ACETAMINOPHEN [[place] 5-325 Tablet] 2 tab PO Q6H PRN 04/05/18 [Last Taken Unknown] Magnesium Hydroxide [Milk Of Magnesia] 15 ml PO DAILY PRN 04/05/18 [Last Taken Unknown] Menthol [Biofreeze] 1 appl TP BID PRN 04/05/18 [Last Taken Unknown] Metolazone [Zaroxolyn] 5 mg PO DAILY 04/05/18 [Last Taken Unknown] Polyethylene Glycol 3350 [Miralax] 17 gm PO DAILY 04/05/18 [Last Taken Unknown] Saliva Stimulant Agents Comb.3 [Biotene Moisturizing Mouth] 1 spray PO DAILY PRN 04/05/18 [Last Taken Unknown] Exam - Exam Vital Signs: Vital Signs - Last Taken Temp 36.7 C 04/05/18 15:20 Pulse 90 04/05/18 15:20 Resp 20 04/05/18 15:20 BP 157/57 H 04/05/18 15:20 Pulse Ox 98 04/05/18 15:20 Constitutional: Present: Alert, Oriented x3, Cooperative, No distress, Obese ENT Exam: Present: normal ENT inspection, dry mucous membranes Eye Exam: bilateral eye: normal inspection, PERRL Neck: Present: non-tender, full range of motion, supple Back Exam: Present: normal inspection, no CVA tenderness Breasts: Present: Exam deferred Respiratory: Present: no respiratory distress, No rales, No wheezing Cardiovascular/Chest: Present: normal peripheral pulses, regular rate, rhythm, no chest tenderness Abdomen: Present: Normal bowel sounds, soft, obese, tender - generalized /Rectal: Present: Exam deferred Extremity: Present: normal range of motion, lower extremity edema, leg pain Skin Exam: Present: other - Erythema of the BLE Lymphatic: Present: no adenopathy Neurologic: Present: no motor/sensory deficits, alert, normal mood/affect, oriented x 3 Appearance: Present: appropriate appearance, appropriate insight Eye contact: Present: cooperative, good eye contact, normal speech Thoughts: Present: normal thought pattern, no apparent hallucination Diagnostic Studies: Abnormal Lab Results 04/05/18 04/05/18 Range/Units 12:15 12:15 WBC 13.2 H (4.0-10.5) K/mm3 RBC 2.92 L (4.2-5.4) M/mm3 Hgb 9.3 L (12.5-16.0) gm/dL Hct 29.6 L (37.0-47.0) % MCV 101.4 H (78-100) fl MCH 31.8 H (27-31) pg MCHC 31.4 L (32-36) g/dl RDW 18.3 H (11.5-14.0) % Band Neuts % (Manual) 6 H (0-2.0) % Lymphocytes % (Manual) 14 L (20-51) % Neutrophils # (Manual) 9.0 H (1.3-6.0) K/mm3 Monocytes # (Manual) 1.2 H (0.0-1.0) k/mm3 Potassium 2.9 L D (3.4-4.6) mmol/L Chloride 95 L (97-106) mmol/L Carbon Dioxide 34.5 H (24-32.6) mmol/L BUN/Creatinine Ratio 24.2 H (9.0-21.6) Random Glucose 147 H (70-110) mg/dL B-Natriuretic Peptide 1865 H (5-325) pg/mL Albumin 3.0 L (3.4-5.0) gm/dl Laboratory Results WBC 13.2 K/mm3 (4.0-10.5) H 04/05/18 12:15 RBC 2.92 M/mm3 (4.2-5.4) L 04/05/18 12:15 Hgb 9.3 gm/dL (12.5-16.0) L 04/05/18 12:15 Hct 29.6 % (37.0-47.0) L 04/05/18 12:15 MCV 101.4 fl (78-100) H 04/05/18 12:15 MCH 31.8 pg (27-31) H 04/05/18 12:15 MCHC 31.4 g/dl (32-36) L 04/05/18 12:15 RDW 18.3 % (11.5-14.0) H 04/05/18 12:15 Plt Count 203 K/mm3 (150-450) 04/05/18 12:15 MPV 10.2 fl (8-12.5) 04/05/18 12:15 Neutrophils % (Manual) 68 % (42-75) 04/05/18 12:15 Band Neuts % (Manual) 6 % (0-2.0) H 04/05/18 12:15 Lymphocytes % (Manual) 14 % (20-51) L 04/05/18 12:15 Monocytes % (Manual) 9 % (0-9) 04/05/18 12:15 Eosinophils % (Manual) 3 % (0-3) 04/05/18 12:15 Neutrophils # (Manual) 9.0 K/mm3 (1.3-6.0) H 04/05/18 12:15 Lymphocytes # (Manual) 1.8 k/mm3 (1.5-3.5) 04/05/18 12:15 Monocytes # (Manual) 1.2 k/mm3 (0.0-1.0) H 04/05/18 12:15 Eosinophils # (Manual) 0.4 k/mm3 (0.0-0.7) 04/05/18 12:15 Nucleated RBCs 1.0 % (0-1) 04/05/18 12:15 Hypersegmented Polys Trace 04/05/18 12:15 Platelet Estimate Normal (NORMAL) 04/05/18 12:15 Polychromasia 1+ 04/05/18 12:15 Hypochromasia 1+ 04/05/18 12:15 Anisocytosis 1+ 04/05/18 12:15 Macrocytosis 2+ 04/05/18 12:15 Target Cells 2+ 04/05/18 12:15 Sodium 137 mmol/L (132-142) 04/05/18 12:15 Plasma Sodium 138 mmol/L (130-142) 04/05/18 12:15 Potassium 2.9 mmol/L (3.4-4.6) L D 04/05/18 12:15 Chloride 95 mmol/L (97-106) L 04/05/18 12:15 Carbon Dioxide 34.5 mmol/L (24-32.6) H 04/05/18 12:15 Anion Gap 10.4 mmol/L (6.8-13.8) 04/05/18 12:15 BUN 22 mg/dL (3-23) 04/05/18 12:15 Creatinine 0.91 mg/dL (0.4-1.4) 04/05/18 12:15 Est GFR (Non-Af Amer) 64 mL/min (60-130) 04/05/18 12:15 BUN/Creatinine Ratio 24.2 (9.0-21.6) H 04/05/18 12:15 Random Glucose 147 mg/dL (70-110) H 04/05/18 12:15 Calcium 9.7 mg/dL (7.9-10.9) 04/05/18 12:15 Calcium Adj for Albumin 10.2 mg/dL (8.4-10.2) 04/05/18 12:15 Total Bilirubin 0.5 mg/dL (0.0-1.1) 04/05/18 12:15 AST 25 U/L (0-48) 04/05/18 12:15 ALT 27 U/L (19-67) 04/05/18 12:15 Alkaline Phosphatase 126 U/L (50-170) 04/05/18 12:15 Troponin I Less than 0.017 ng/ml (0.00-0.10) 04/05/18 12:15 B-Natriuretic Peptide 1865 pg/mL (5-325) H 04/05/18 12:15 Total Protein 6.7 gm/dL (6.2-8.2) 04/05/18 12:15 Albumin 3.0 gm/dl (3.4-5.0) L 04/05/18 12:15 Assessment/Plan - Assessment/Plan (1) Acute exacerbation of CHF (congestive heart failure) Assessment: Pt reported SOB, was noted to have fluid overload signs on CXR and peripheral edema, along with BNP--> 1865. Given 40mg lasix at the ED and additional 40 mg given while on the floor. May need an extended stay for continued IV diuretics with close monitoring of electrolytes imbalances, symptomatic hypotension, strict I/O, daily weight and renal function. Check BMP in am. Problem: Acute (2) Cellulitis Assessment: Has erythema of BLE which feels hot and is tender to touch. Due to elevated WBC with bandemia/, hx of comorbidities, along with MRSA Risk factors- compromised skin surface, poor hygiene it's reasonable to initiate antibiotics promptly and will cover with Vancomycin. Will add ESR and CRP to labs to check for sign of systemic infection. Await blood culture results. Monitor CBC in am. Problem: Acute Qualifiers: Site of cellulitis: extremity Site of cellulitis of extremity: lower extremity (3) Hypokalemia Assessment: Likely due to diuretics, given oral replenishing. BMP in am. Problem: Acute (4) Diabetes mellitus Assessment: Stable- Accuchecks ACHS, continue insulin Problem: Chronic (5) HTN (hypertension) Assessment: Stable- Continue Metoprolol and Problem: Chronic Qualifiers: Hypertension type: essential hypertension Qualified Code(s): I10 - Essential (primary) hypertension (6) Gout Assessment: Continue Allopurinal- monitor close as diuretics can precipitate gout attack. Problem: Chronic Qualifiers: Gout site: foot (7) Parkinson disease Problem: Chronic (8) Anxiety Problem: Chronic (9) HLD (hyperlipidemia) Problem: Acute <RobDeclan - Last Filed: 04/06/18 09:00> Chief Complaint - Chief Complaint Chief Complaint: Accelerated wt. gain due to fluid retention, SOB, cellulitis in both legs. Medical History (Last Updated 04/05/18 @ 18:55 by Mary Atkinson RN) Altered mental status Anemia Anxiety Anxiety disorder Benign neoplasm of kidney Complex regional pain syndrome Dementia Depression Diabetes mellitus type 2 in obese Eczema Eczema Encephalopathy Encephalopathy Fronto-temporal dementia GERD (gastroesophageal reflux disease) Gastro-esophageal reflux Gout Gout History of femur fracture Hyperlipidemia Hypertension Hyponatremia Hypovolemia Intervertebral disc disorder Major depressive disorder Malignant neoplasm of kidney Morbid obesity Obesity Osteoarthritis Polyosteoarthritis Spinal stenosis TIA (transient ischemic attack) Urinary retention Surgical History: Surgical History (Last Updated 04/05/18 @ 18:55 by Mary Atkinson RN) H/O thyroidectomy History of hernia repair History of total right knee replacement Family History: Family History (Last Updated 04/05/18 @ 18:56 by Mary Atkinson RN) Mother Unknown family medical history Father Unknown family medical history Social History: Patient Lives/Resources [facility] Utilized Occupation retired Preferred Language Nauruan Do you have any episcopal or Yes: [employer] [facility] [place] cultural preference? Smoking Status Former smoker Have you smoked in the past 12 No months Do you dip or chew tobacco No Abuse History No History of abuse Psych History Hx of Depression Alcohol Use rarely Drug Use none Immunizations: IMMUNIZATION HX Immunizations Up to Date Yes History of Influenza Vaccine Yes Hx Pneumococcal Vaccination Yes Exam - Exam Vital Signs: Vital Signs - Last Taken Temp 37.1 C 04/06/18 06:54 Pulse 94 04/06/18 06:33 Resp 20 04/06/18 06:54 BP 148/66 04/06/18 06:33 Pulse Ox 95 04/06/18 06:54 Constitutional: Present: Morbidly obese. Absent: Obese Eye Exam: bilateral eye: normal inspection, PERRL, EOMI Respiratory: Present: rales, rhonchi, wheezing - end expiratory. Absent: No rales, No wheezing Cardiovascular/Chest: Present: other - Distended neck veins and positive HJR @ 45 deg., edema Peripheral Pulses: carotid (R): 2+, carotid (L): 2+, radial (R): 2+, radial (L) : 2+ Abdomen: Present: firm, distended. Absent: soft Skin Exam: Present: normal color - except for the lower extrems where there is redness and oozing. Neurologic: Present: counter helper II-XII nml as tested Diagnostic Studies: Abnormal Lab Results 04/05/18 04/05/18 04/05/18 Range/Units 04:55 12:15 12:15 WBC 13.2 H (4.0-10.5) K/mm3 RBC 2.92 L (4.2-5.4) M/mm3 Hgb 9.3 L (12.5-16.0) gm/dL Hct 29.6 L (37.0-47.0) % MCV 101.4 H (78-100) fl MCH 31.8 H (27-31) pg MCHC 31.4 L (32-36) g/dl RDW 18.3 H (11.5-14.0) % Band Neuts % (Manual) 6 H (0-2.0) % Lymphocytes % (Manual) 14 L (20-51) % Immature Granulocytes (0-1) Neutrophils # (Manual) 9.0 H (1.3-6.0) K/mm3 Monocytes # (Manual) 1.2 H (0.0-1.0) k/mm3 ESR 102 H (0-15) mm/hr Potassium 2.9 L D (3.4-4.6) mmol/L Chloride 95 L (97-106) mmol/L Carbon Dioxide 34.5 H (24-32.6) mmol/L BUN/Creatinine Ratio 24.2 H (9.0-21.6) Random Glucose 147 H (70-110) mg/dL C-Reactive Prot, Quant (0.0-0.9) mg/dL B-Natriuretic Peptide 1865 H (5-325) pg/mL Albumin 3.0 L (3.4-5.0) gm/dl 04/05/18 04/06/18 04/06/18 Range/Units 12:15 04:55 04:55 WBC 13.3 H (4.0-10.5) K/mm3 RBC 2.89 L (4.2-5.4) M/mm3 Hgb 9.1 L (12.5-16.0) gm/dL Hct 29.2 L (37.0-47.0) % MCV 101.0 H (78-100) fl MCH 31.5 H (27-31) pg MCHC 31.2 L (32-36) g/dl RDW 18.2 H (11.5-14.0) % Band Neuts % (Manual) (0-2.0) % Lymphocytes % (Manual) 13 L (20-51) % Immature Granulocytes 2 H (0-1) Neutrophils # (Manual) 9.8 H (1.3-6.0) K/mm3 Monocytes # (Manual) 1.2 H (0.0-1.0) k/mm3 ESR (0-15) mm/hr Potassium 3.1 L (3.4-4.6) mmol/L Chloride (97-106) mmol/L Carbon Dioxide 34.4 H (24-32.6) mmol/L BUN/Creatinine Ratio (9.0-21.6) Random Glucose 150 H (70-110) mg/dL C-Reactive Prot, Quant 11.5 H (0.0-0.9) mg/dL B-Natriuretic Peptide (5-325) pg/mL Albumin (3.4-5.0) gm/dl Laboratory Results WBC 13.3 K/mm3 (4.0-10.5) H 04/06/18 04:55 RBC 2.89 M/mm3 (4.2-5.4) L 04/06/18 04:55 Hgb 9.1 gm/dL (12.5-16.0) L 04/06/18 04:55 Hct 29.2 % (37.0-47.0) L 04/06/18 04:55 MCV 101.0 fl (78-100) H 04/06/18 04:55 MCH 31.5 pg (27-31) H 04/06/18 04:55 MCHC 31.2 g/dl (32-36) L 04/06/18 04:55 RDW 18.2 % (11.5-14.0) H 04/06/18 04:55 Plt Count 222 K/mm3 (150-450) 04/06/18 04:55 MPV 10.5 fl (8-12.5) 04/06/18 04:55 Neutrophils % (Manual) 74 % (42-75) 04/06/18 04:55 Band Neuts % (Manual) 6 % (0-2.0) H 04/05/18 12:15 Lymphocytes % (Manual) 13 % (20-51) L 04/06/18 04:55 Monocytes % (Manual) 9 % (0-9) 04/06/18 04:55 Eosinophils % (Manual) 3 % (0-3) 04/05/18 12:15 Basophils % (Manual) 1 % (0-1) 04/06/18 04:55 Immature Granulocytes 2 (0-1) H 04/06/18 04:55 Neutrophils # (Manual) 9.8 K/mm3 (1.3-6.0) H 04/06/18 04:55 Lymphocytes # (Manual) 1.7 k/mm3 (1.5-3.5) 04/06/18 04:55 Monocytes # (Manual) 1.2 k/mm3 (0.0-1.0) H 04/06/18 04:55 Eosinophils # (Manual) 0.4 k/mm3 (0.0-0.7) 04/05/18 12:15 Basophils # (Manual) 0.1 k/mm3 (0.0-0.1) 04/06/18 04:55 Nucleated RBCs 1.0 % (0-1) 04/05/18 12:15 Hypersegmented Polys Trace 04/05/18 12:15 Atypic/Reactive Lymphs 1 % (0-2) 04/06/18 04:55 Platelet Estimate Normal (NORMAL) 04/06/18 04:55 Polychromasia 1+ 04/05/18 12:15 Hypochromasia 1+ 04/05/18 12:15 Anisocytosis Trace 04/06/18 04:55 Macrocytosis 2+ 04/05/18 12:15 Target Cells 2+ 04/05/18 12:15 ESR 102 mm/hr (0-15) H 04/05/18 04:55 Sodium 138 mmol/L (132-142) 04/06/18 04:55 Plasma Sodium 139 mmol/L (130-142) 04/06/18 04:55 Potassium 3.1 mmol/L (3.4-4.6) L 04/06/18 04:55 Chloride 98 mmol/L (97-106) 04/06/18 04:55 Carbon Dioxide 34.4 mmol/L (24-32.6) H 04/06/18 04:55 Anion Gap 8.7 mmol/L (6.8-13.8) 04/06/18 04:55 BUN 19 mg/dL (3-23) 04/06/18 04:55 Creatinine 0.90 mg/dL (0.4-1.4) 04/06/18 04:55 Est GFR (Non-Af Amer) 65 mL/min (60-130) 04/06/18 04:55 BUN/Creatinine Ratio 21.1 (9.0-21.6) 04/06/18 04:55 Random Glucose 150 mg/dL (70-110) H 04/06/18 04:55 Calcium 9.6 mg/dL (7.9-10.9) 04/06/18 04:55 Calcium Adj for Albumin 10.2 mg/dL (8.4-10.2) 04/05/18 12:15 Total Bilirubin 0.5 mg/dL (0.0-1.1) 04/05/18 12:15 AST 25 U/L (0-48) 04/05/18 12:15 ALT 27 U/L (19-67) 04/05/18 12:15 Alkaline Phosphatase 126 U/L (50-170) 04/05/18 12:15 Troponin I Less than 0.017 ng/ml (0.00-0.10) 04/05/18 12:15 C-Reactive Prot, Quant 11.5 mg/dL (0.0-0.9) H 04/05/18 12:15 B-Natriuretic Peptide 1865 pg/mL (5-325) H 04/05/18 12:15 Total Protein 6.7 gm/dL (6.2-8.2) 04/05/18 12:15 Albumin 3.0 gm/dl (3.4-5.0) L 04/05/18 12:15 Assessment/Plan - Narrative Narrative: Vigorous diuresis,colonic catharsis, management of cellulitis, - Assessment/Plan (1) Congestive heart failure Problem: Acute Qualifiers: Heart failure type: unspecified Heart failure chronicity: acute Qualified Code(s): I50.9 - Heart failure, unspecified (2) Cellulitis Problem: Acute Qualifiers: Site of cellulitis: extremity Site of cellulitis of extremity: lower extremity (3) Hypokalemia Problem: Acute (4) Constipation Problem: Acute Qualifiers: Constipation type: unspecified constipation type Qualified Code(s): K59.00 - Constipation, unspecified
[2018-04-05] MEDS ORDERED: VANCOMYCIN HCL 1 GM in DEXTROSE 5 % IN WATER 250 ML IV SCH ×2 (21:15)
[2018-04-05] MEDS ORDERED: MAGNESIUM CITRATE 300 ML BTL PO SCH (22:00)
[2018-04-05] MEDS ORDERED: ENOXAPARIN SODIUM 40 MG/0.4 ML SYRG SC SCH (22:00)
[2018-04-05] MEDS ORDERED: hydrALAZINE HCL 25 MG TABLET ONE (22:11)
[2018-04-05] MEDS: CYCLOBENZAPRINE HCL 10 MG TABLET PO SCH (22:16)
[2018-04-05] MEDS: METOPROLOL TARTRATE 50 MG TABLET PO SCH (22:17)
[2018-04-05] MEDS: INSULIN DETEMIR 100 UNITS/ML VIAL SC SCH (22:18)
[2018-04-05] MEDS: POTASSIUM CHLORIDE 20 MEQ TABLET.SA PO SCH (22:54)
[2018-04-05] MEDS ORDERED: VANCOMYCIN HCL 2 GM in NORMAL SALINE 500 ML IV SCH (23:00)
[2018-04-05] MEDS ORDERED: buPROPion HCL 150 MG TAB.SR.24H PO SCH (23:00)
[2018-04-05] MEDS: hydrALAZINE HCL 50 MG TABLET PO SCH (23:01)
[2018-04-06 05:11] LABS: Hematocrit 29.2 % (37.0-47.0); Hemoglobin 9.1 gm/dL (12.5-16.0); Mean Corpuscular Hemoglobin 31.5 pg (27-31); Mean Corpuscular Hgb Conc 31.2 g/dl (32-36); Mean Platelet Volume 10.5 fl (8-12.5); Platelet Count 222 K/mm3 (150-450); Red Blood Count 2.89 M/mm3 (4.2-5.4); Red Cell Distribution Width 18.2 % (11.5-14.0); White Blood Count 13.3 K/mm3 (4.0-10.5)
[2018-04-06 05:13] LABS: Total Cells Counted 100
[2018-04-06 05:17] LABS: Anion Gap 8.7 mmol/L (6.8-13.8); BUN/Creatinine Ratio 21.1 (9.0-21.6); Calcium * 9.6 mg/dL (7.9-10.9); Carbon Dioxide 34.4 mmol/L (24-32.6); Estimated Creat Clear 56.2; Potassium 3.1 mmol/L (3.4-4.6)
[2018-04-06] MEDS ORDERED: FUROSEMIDE 10 MG/ML VIAL IV ONE (06:00)
[2018-04-06 06:14] LABS: Atypical (Reactive) Lymph 1 % (0-2); Basophil 1 % (0-1); Immature Granulocyte 2 (0-1); Lymphocyte 13 % (20-51); Monocyte 9 % (0-9); Neutrophil 74 % (42-75); Neutrophil # 9.8 K/mm3 (1.3-6.0)
[2018-04-06 06:15] LABS: Platelet Estimate Normal (NORMAL)
[2018-04-06 06:17] LABS: Anisocytosis Trace
[2018-04-06] MEDS: CLONIDINE 0.1 MG PO SCH ×2 (06:20→09:51)
[2018-04-06] MEDS ORDERED: OMEPRAZOLE 20 MG CAPSULE.SA PO SCH (07:00)
[2018-04-06] MEDS ORDERED: PANTOPRAZOLE SODIUM 40 MG TABLET.EC PO SCH (07:00)
[2018-04-06] MEDS ORDERED: LEVOTHYROXINE SODIUM 125 MCG TABLET PO SCH (07:00)
[2018-04-06] MEDS ORDERED: LEVOTHYROXINE SODIUM 25 MCG TABLET ONE (07:25)
[2018-04-06] MEDS ORDERED: LEVOTHYROXINE SODIUM 100 MCG TABLET ONE (07:25)
[2018-04-06] MEDS: INSULIN REGULAR, HUMAN 100 UNITS/ML VIAL SC SCH ×3 (07:26→17:45)
[2018-04-06] MEDS ORDERED: ALLOPURINOL 100 MG TABLET PO SCH (09:00)
[2018-04-06] MEDS ORDERED: ALPRAZolam 1 MG TABLET PO SCH (09:00)
[2018-04-06] MEDS ORDERED: BUPROPION HCL 150 MG PO SCH (09:00)
[2018-04-06] MEDS ORDERED: PREGABALIN 50 MG CAPSULE PO SCH (09:00)
[2018-04-06] MEDS ORDERED: VENLAFAXINE HCL 37.5 MG CAP.SR.24H PO SCH (09:00)
[2018-04-06] MEDS: CYCLOBENZAPRINE HCL 10 MG TABLET PO SCH (09:51)
[2018-04-06] MEDS: METOPROLOL TARTRATE 50 MG TABLET PO SCH (09:51)
[2018-04-06] MEDS: hydrALAZINE HCL 50 MG TABLET PO SCH ×3 (09:51→17:45)
[2018-04-06] MEDS: CALCIUM CARBONATE 500 MG TAB.CHEW PO SCH ×3 (09:52→17:45)
[2018-04-06] MEDS: POTASSIUM CHLORIDE 20 MEQ TABLET.SA PO SCH ×2 (09:52→17:45)
[2018-04-06] MEDS: INSULIN DETEMIR 100 UNITS/ML VIAL SC SCH (09:53)
--- NOTE | 2018-04-06 13:20 | DS ---
(1) Congestive heart failure Problem: Acute Qualifiers: Heart failure type: unspecified Heart failure chronicity: acute on chronic Qualified Code(s): I50.9 - Heart failure, unspecified (2) Cellulitis Problem: Acute Qualifiers: Site of cellulitis: extremity Site of cellulitis of extremity: lower extremity (3) Hypokalemia Problem: Acute (4) Constipation Problem: Chronic Qualifiers: Constipation type: slow transit constipation Qualified Code(s): K59.01 - Slow transit constipation Description of Stay: Litzy has been admitted for acute on chronic CHF causing severe edema in her lower extremities abdominal bloating and distention and shortness of breath. She was hypokalemic at 2.9 on admission. She received some potassium and came up to 3.1 this morning. Her sed rate elevated at 75. Her BNP was elevated. She has been diuresed and has lost 4 kg pounds of weight since admission. She is now breathing easier, her stomach is less distended, and the leg edema is better. She had cellulitis of both lower extremities and received 1 dose of vancomycin which I then stopped. The cellulitis develops because of her severe edema and once that is resolved the cellulitis clears fairly quickly at least historically. She will be discharged back to the [facility]. Procedures Performed: none Results and Findings: Lab Pending Results 04/05/18 04/05/18 04/05/18 04:55 12:15 12:15 WBC 13.2 H RBC 2.92 L Hgb 9.3 L Hct 29.6 L MCV 101.4 H MCH 31.8 H MCHC 31.4 L RDW 18.3 H Plt Count 203 MPV 10.2 Neutrophils % (Manual) 68 Band Neuts % (Manual) 6 H Lymphocytes % (Manual) 14 L Monocytes % (Manual) 9 Eosinophils % (Manual) 3 Basophils % (Manual) Immature Granulocytes Neutrophils # (Manual) 9.0 H Lymphocytes # (Manual) 1.8 Monocytes # (Manual) 1.2 H Eosinophils # (Manual) 0.4 Basophils # (Manual) Nucleated RBCs 1.0 Hypersegmented Polys Trace Atypic/Reactive Lymphs Platelet Estimate Normal Polychromasia 1+ Hypochromasia 1+ Anisocytosis 1+ Macrocytosis 2+ Target Cells 2+ ESR 102 H Sodium 137 Plasma Sodium 138 Potassium 2.9 L D Chloride 95 L Carbon Dioxide 34.5 H Anion Gap 10.4 BUN 22 Creatinine 0.91 Est GFR (Non-Af Amer) 64 BUN/Creatinine Ratio 24.2 H Random Glucose 147 H Calcium 9.7 Calcium Adj for Albumin 10.2 Total Bilirubin 0.5 AST 25 ALT 27 Alkaline Phosphatase 126 Troponin I Less than 0.017 C-Reactive Prot, Quant B-Natriuretic Peptide 1865 H Total Protein 6.7 Albumin 3.0 L 04/05/18 04/06/18 04/06/18 12:15 04:55 04:55 WBC 13.3 H RBC 2.89 L Hgb 9.1 L Hct 29.2 L MCV 101.0 H MCH 31.5 H MCHC 31.2 L RDW 18.2 H Plt Count 222 MPV 10.5 Neutrophils % (Manual) 74 Band Neuts % (Manual) Lymphocytes % (Manual) 13 L Monocytes % (Manual) 9 Eosinophils % (Manual) Basophils % (Manual) 1 Immature Granulocytes 2 H Neutrophils # (Manual) 9.8 H Lymphocytes # (Manual) 1.7 Monocytes # (Manual) 1.2 H Eosinophils # (Manual) Basophils # (Manual) 0.1 Nucleated RBCs Hypersegmented Polys Atypic/Reactive Lymphs 1 Platelet Estimate Normal Polychromasia Hypochromasia Anisocytosis Trace Macrocytosis Target Cells ESR Sodium 138 Plasma Sodium 139 Potassium 3.1 L Chloride 98 Carbon Dioxide 34.4 H Anion Gap 8.7 BUN 19 Creatinine 0.90 Est GFR (Non-Af Amer) 65 BUN/Creatinine Ratio 21.1 Random Glucose 150 H Calcium 9.6 Calcium Adj for Albumin Total Bilirubin AST ALT Alkaline Phosphatase Troponin I C-Reactive Prot, Quant 11.5 H B-Natriuretic Peptide Total Protein Albumin Discharge Location: [facility] Disposition: Intermediate Care Facility ICF Condition: Stable Level of Care: ICF Discharge Activity: Activity as tolerated Alf Therapy: Physicial Therapy, Occupation Therapy Referrals: Declan Rivas DO [Primary Care Provider] - Prescriptions (Any new or edited meds): Ciprofloxacin HCl [Cipro] 500 mg PO BID #20 tab Complete Home Medications List: Complete Home Medication List: ALPRAZolam [Xanax] 1 mg PO DAILY 12/31/17 Acetaminophen [Tylenol] 1,000 mg PO Q8H PRN 12/31/17 Allopurinol [Zyloprim] 100 mg PO DAILY 12/31/17 Bupropion HCl [Bupropion HCl ER] 150 mg PO DAILY 12/31/17 Calcium Carbonate [Calcium] 1 tab PO TID 12/31/17 Cholecalciferol (Vitamin D3) [Vitamin D3] 50,000 unit PO FR 12/31/17 Clonidine HCl [Clonidine HCl ER] 1 tab PO BID 12/31/17 Cyclobenzaprine HCl 10 mg PO BID 12/31/17 Fluticasone Propionate [Flonase Allergy Relief] 1 spray NS DAILY 12/31/17 Furosemide [Lasix] 80 mg PO BID 12/31/17 Insulin Detemir [Levemir] 90 units SC BID 12/31/17 Insulin Regular, Human [Novolin R] 12 units SC TID 12/31/17 Insulin Regular, Human [Novolin R] See Protocol SC ACHS 12/31/17 Levothyroxine Sodium [Levoxyl] 125 mcg PO DAILY 12/31/17 Magnesium Hydroxide [Milk Of Magnesia] 30 ml PO 3XW 12/31/17 Menthol [[place] Cough Drops] 1 lozenge MM PRN PRN 12/31/17 Metoprolol Tartrate 50 mg PO BID 12/31/17 Multivitamin with Minerals [Multivitamins with Minerals] 1 each PO DAILY Omeprazole 40 mg PO DAILY 12/31/17 Potassium Chloride 20 meq PO BID 12/31/17 Pregabalin [Lyrica] 50 mg PO DAILY 12/31/17 Sennosides/Docusate Sodium [Senna-Docusate Sodium Tablet] 2 tab PO BID 12/31/17 Sodium Chloride [Saline Nose [place]] 1 spray NS HS 12/31/17 Venlafaxine HCl [Venlafaxine HCl ER] 75 mg PO DAILY 12/31/17 hydrALAZINE HCL [Hydralazine HCl] 50 mg PO QID 12/31/17 Bupropion HCl 150 mg PO Q2D 04/05/18 HYDROcodone/ACETAMINOPHEN [[place] 5-325 Tablet] 2 tab PO Q6H PRN 04/05/18 Magnesium Hydroxide [Milk Of Magnesia] 15 ml PO DAILY PRN 04/05/18 Menthol [Biofreeze] 1 appl TP BID PRN 04/05/18 Metolazone [Zaroxolyn] 5 mg PO DAILY 04/05/18 Polyethylene Glycol 3350 [Miralax] 17 gm PO DAILY 04/05/18 Saliva Stimulant Agents Comb.3 [Biotene Moisturizing Mouth] 1 spray PO DAILY PRN 04/05/18 Ciprofloxacin HCl [Cipro] 500 mg PO BID #20 tab 04/06/18 buPROPion HCL [Wellbutrin Xl] 150 mg PO Q48H tab.sr.24h 04/06/18
[2018-04-06 17:07] VITALS: BP 153/76
[2018-04-07] MEDS ORDERED: buPROPion HCL 150 MG TAB.SR.24H PO SCH (21:00)
[2018-04-08] MEDS ORDERED: ERGOCALCIFEROL 50000 UNIT TABLET PO SCH (09:00)
== END 2018-04-06 19:30 ==
LOC: ER 11:40 → MS 11:40
PROVIDERS: ADMIT Family Medicine; ATTEND Family Medicine
CPT/HCPCS: 36415; 71010; 71045; 74019; 74020; 80048; 80053; 83519; 83880; 84484; 85025; 85652; 86140; 87040; 87081; 93005; 94760; 96372; 96374; 96376; 97110; 97116; 97161; 99283; G0378; G8978; G8979; G8980

== ENCOUNTER 2018-05-25 02:03 | Inpatient (IN) | payer MEDICARE, OTHER ==
--- NOTE | 2018-05-25 02:25 | ERNOTE ---
Dyspnea - General Presenting Symptoms: shortness of breath Time Seen by Provider: 05/25/18 02:15 Source: patient Exam Limitations: no limitations - Immun/Allergies/Home Medications Immunizations: IMMUNIZATION HX Immunizations Up to Date Yes History of Influenza Vaccine Yes Hx Pneumococcal Vaccination Yes Allergies/Adverse Reactions: Allergies amitriptyline [Amitriptyline] Allergy (Intermediate, Verified 05/25/18 02:17) Other "makes crazy" Penicillins Allergy (Intermediate, Verified 05/25/18 02:17) Other rash duloxetine HCl [From Cymbalta] Allergy (Verified 05/25/18 02:17) duloxetine [Duloxetine] Adverse Reaction (Intermediate, Verified 05/25/18 02:17) Other palpatations dizziness nortriptyline [Nortriptyline] Adverse Reaction (Intermediate, Verified 05/25/18 02:17) Other "makes crazy" tramadol Adverse Reaction (Intermediate, Verified 05/25/18 02:17) Nausea gemfibrozil [Gemfibrozil] Adverse Reaction (Mild, Verified 05/25/18 02:17) Nausea diarrhea morphine Adverse Reaction (Mild, Verified 05/25/18 02:17) Vomiting oxycodone HCl [From Percocet] Adverse Reaction (Verified 05/25/18 02:17) propoxyphene napsylate [From Darvocet-N] Adverse Reaction (Verified 05/25/18 02: 17) Home Medications: HOME MEDICATIONS Acetaminophen [Tylenol] 1,000 mg PO Q8H PRN 12/31/17 [Last Taken Unknown] Allopurinol [Zyloprim] 100 mg PO DAILY 12/31/17 [Last Taken Unknown] Bupropion HCl [Bupropion HCl ER] 150 mg PO DAILY 12/31/17 [Last Taken Unknown] Calcium Carbonate [Calcium] 1 tab PO TID 12/31/17 [Last Taken Unknown] Cholecalciferol (Vitamin D3) [Vitamin D3] 50,000 unit PO FR 12/31/17 [Last Taken Unknown] Clonidine HCl [Clonidine HCl ER] 1 tab PO BID 12/31/17 [Last Taken Unknown] Cyclobenzaprine HCl 10 mg PO BID 12/31/17 [Last Taken Unknown] Fluticasone Propionate [Flonase Allergy Relief] 1 spray NS DAILY 12/31/17 [Last Taken Unknown] Furosemide [Lasix] 80 mg PO BID 12/31/17 [Last Taken Unknown] Insulin Detemir [Levemir] 90 units SC BID 12/31/17 [Last Taken Unknown] Insulin Regular, Human [Novolin R] 12 units SC TID 12/31/17 [Last Taken Unknown] Insulin Regular, Human [Novolin R] See Protocol SC ACHS 12/31/17 [Last Taken Unknown] Levothyroxine Sodium [Levoxyl] 125 mcg PO DAILY 12/31/17 [Last Taken Unknown] Magnesium Hydroxide [Milk Of Magnesia] 30 ml PO 3XW 12/31/17 [Last Taken Unknown ] Menthol [[place] Cough Drops] 1 lozenge MM PRN PRN 12/31/17 [Last Taken Unknown] Metoprolol Tartrate 50 mg PO BID 12/31/17 [Last Taken Unknown] Multivitamin with Minerals [Multivitamins with Minerals] 1 each PO DAILY [Last Taken Unknown] Omeprazole 40 mg PO DAILY 12/31/17 [Last Taken Unknown] Potassium Chloride 20 meq PO BID 12/31/17 [Last Taken Unknown] Pregabalin [Lyrica] 50 mg PO DAILY 12/31/17 [Last Taken Unknown] Sennosides/Docusate Sodium [Senna-Docusate Sodium Tablet] 2 tab PO BID 12/31/17 [Last Taken Unknown] Sodium Chloride [Saline Nose [place]] 1 spray NS HS 12/31/17 [Last Taken Unknown] Venlafaxine HCl [Venlafaxine HCl ER] 75 mg PO DAILY 12/31/17 [Last Taken Unknown ] hydrALAZINE HCL [Hydralazine HCl] 50 mg PO QID 12/31/17 [Last Taken Unknown] Bupropion HCl 150 mg PO Q2D 04/05/18 [Last Taken 04/03/18] HYDROcodone/ACETAMINOPHEN [[place] 5-325 Tablet] 2 tab PO Q6H PRN 04/05/18 [Last Taken Unknown] Magnesium Hydroxide [Milk Of Magnesia] 15 ml PO DAILY PRN 04/05/18 [Last Taken Unknown] Menthol [Biofreeze] 1 appl TP BID PRN 04/05/18 [Last Taken Unknown] Metolazone [Zaroxolyn] 5 mg PO DAILY 04/05/18 [Last Taken Unknown] Polyethylene Glycol 3350 [Miralax] 17 gm PO DAILY 04/05/18 [Last Taken Unknown] Saliva Stimulant Agents Comb.3 [Biotene Moisturizing Mouth] 1 spray PO DAILY PRN 04/05/18 [Last Taken Unknown] Ciprofloxacin HCl [Cipro] 500 mg PO BID #20 tab 04/06/18 [Last Taken Unknown] buPROPion HCL [Wellbutrin Xl] 150 mg PO Q48H tab.sr.24h 04/06/18 [Last Taken Unknown] alprazolam 1 mg tablet 1 mg PO .COMPLEX #60 tab 04/13/18 [Last Taken Unknown] - History of Present Illness Narrative: Pt has vague complaints of shortness of breath and back pain. Severity: moderate Treatment [employer]EN[employer]: paramedics Initiating event: Reports: upper resp illness Frequency of episodes: Reports: frequent episodes Modifying Factors - (Improves): Reports: oxygen Modifying Factors (Worsens): Reports: activity Prior Treatment: Reports: recently seen, treated by physician Review of Systems - Review of Systems Constitutional: Present: recent illness. Absent: fever, chills EYE: Absent: vision changes ENT: Absent: nose congestion, nasal drainage Respiratory: Present: shortness of breath, cough, orthopnea Cardiology: Present: chest pain - "In my bronchioles", edema Gastrointestinal/Abdominal: Absent: abdominal pain Musculoskeletal: Present: back pain, muscle pain Skin: Absent: rash Endocrine: Present: excessive sweating, flushing Medical History (Last Reviewed 05/25/18 @ 04:39 by Jan Farrar DO) Altered mental status Anemia Anxiety Anxiety disorder Benign neoplasm of kidney Complex regional pain syndrome Dementia Depression Diabetes mellitus type 2 in obese Eczema Eczema Encephalopathy Encephalopathy Fronto-temporal dementia GERD (gastroesophageal reflux disease) Gastro-esophageal reflux Gout Gout History of femur fracture Hyperlipidemia Hypertension Hyponatremia Hypovolemia Intervertebral disc disorder Major depressive disorder Malignant neoplasm of kidney Morbid obesity Obesity Osteoarthritis Polyosteoarthritis Spinal stenosis TIA (transient ischemic attack) Urinary retention Surgical History: Surgical History (Last Reviewed 05/25/18 @ 04:39 by Jan Farrar DO) H/O thyroidectomy History of hernia repair History of total right knee replacement Family History: Family History (Last Updated 04/05/18 @ 18:56 by Mary Atkinson RN) Mother Unknown family medical history Father Unknown family medical history Social History: Preferred Language Syriac Abuse History No History of abuse Psych History Hx of Depression Physical Exam - Physical Exam General Appearance: Present: wd/wn, alert, mild distress Head Exam: Present: normal inspection, no evidence of injury Neck: Present: normal inspection, nontender Respiratory: Present: no respiratory distress, no accessory muscle use, crackles Cardiovascular/Chest: Present: regular rate, rhythm, no murmur Gastrointestinal/Abdominal: Present: normal bowel sounds, nontender, nondistended, soft Extremity Exam: Present: extremity edema - 1+, other - compression stockings in place below the knee. Absent: joint redness, joint swelling Neurological Exam: Present: alert, oriented, normal mood/affect, no motor/ sensory deficits Skin Exam: Present: normal color, warm/dry Lymphatic Exam: Present: no adenopathy ED Progress - Results and Orders Patient's Lab Results:: I have reviewed the patient's lab results. Results and Orders: Laboratory Tests 05/25/18 05/25/18 02:30 02:30 WBC 16.5 H Hgb 10.2 L Hct 32.4 L Plt Count 235 Neutrophils % (Manual) 80 H Sodium 137 Potassium 2.7 L Chloride 95 L Carbon Dioxide 33.0 H BUN 29 H Creatinine 1.28 Random Glucose 185 H Calcium 9.9 Total Bilirubin 0.5 AST 17 ALT 22 Alkaline Phosphatase 102 B-Natriuretic Peptide 5522 H Total Protein 7.3 Albumin 3.1 L - Vital Signs Patient's Vital Signs:: I have reviewed the patient's vital signs. Vital Signs: Vital Signs 05/25/18 02:11 Temperature 36 C Pulse Rate 83 Respiratory Rate 24 H Blood Pressure 143/65 O2 Sat by Pulse Oximetry 89 L - EKG EKG: NSR, nonspecific ST T wave changes EKG read: Interp. by me - X-Ray X-Ray #1 X-Ray: chest Interpretation: Interp. by me X-ray Comments: bilateral pulmonary edema and right middle lobe/ hilar infiltrate. - Progress/Reassessment Chief Complaint: Dyspnea Progress:: Improved Progress Note-Subjective: 05/25/18 04:[address] Rivas he agrees with admission, requests call to Dr. Wallace in the morning and have her begin the admission. Departure Clinical Impression: Hypokalemia Acute exacerbation of CHF (congestive heart failure) Qualifiers: Heart failure type: unspecified Qualified Code(s): I50.9 - Heart failure, unspecified Pneumonia Qualifiers: Pneumonia type: due to unspecified organism Laterality: right Lung location: middle lobe of lung Qualified Code(s): J18.1 - Lobar pneumonia, unspecified organism - Departure Disposition: Still a patient Condition: Fair
[2018-05-25 02:43] LABS: Hematocrit 32.4 % (37.0-47.0); Hemoglobin 10.2 gm/dL (12.5-16.0); Mean Cell Volume 93.4 fl (78-100); Mean Corpuscular Hemoglobin 29.4 pg (27-31); Mean Corpuscular Hgb Conc 31.5 g/dl (32-36); Mean Platelet Volume 10.5 fl (8-12.5); Platelet Count 235 K/mm3 (150-450); Red Blood Count 3.47 M/mm3 (4.2-5.4); Red Cell Distribution Width 17.2 % (11.5-14.0); White Blood Count 16.5 K/mm3 (4.0-10.5)
[2018-05-25 02:46] LABS: Total Cells Counted 100
[2018-05-25 02:58] LABS: Eosinophil 3 % (0-3); Lymphocyte 10 % (20-51); Monocyte 7 % (0-9); Neutrophil 80 % (42-75); Neutrophil # 13.2 K/mm3 (1.3-6.0); Platelet Estimate Normal (NORMAL); RBC Morphology Normal (NORMAL)
[2018-05-25 03:02] LABS: Albumin * 3.1 gm/dl (3.4-5.0); Anion Gap 11.7 mmol/L (6.8-13.8); BUN/Creatinine Ratio 22.7 (9.0-21.6); Bilirubin, Total 0.5 mg/dL (0.0-1.1); Ca. Corrected For Albumin 10.3 mg/dL (8.4-10.2); Calcium * 9.9 mg/dL (7.9-10.9); Potassium 2.7 mmol/L (3.4-4.6); Total Protein 7.3 gm/dL (6.2-8.2)
[2018-05-25] MEDS ORDERED: FUROSEMIDE 10 MG/ML VIAL IV ONE ×3 (03:58→18:30)
[2018-05-25] MEDS ORDERED: POTASSIUM BICARBONATE/CIT AC 25 MEQ TABLET.EFF PO ONE (03:59)
[2018-05-25] MEDS ORDERED: LEVOFLOXACIN IN DEXTROSE 5 % 750 MG/150 ML BAG IV ONE (04:29)
[2018-05-25] MEDS ORDERED: POTASSIUM BICARBONATE/CIT AC 25 MEQ TABLET.EFF ONE (05:18)
[2018-05-25] MEDS ORDERED: FUROSEMIDE 10 MG/ML VIAL ONE (05:18)
[2018-05-25] MEDS ORDERED: ALPRAZolam 1 MG TABLET PO PRN (09:15)
[2018-05-25] MEDS ORDERED: ACETAMINOPHEN 500 MG TABLET PO PRN (09:19)
[2018-05-25] MEDS: VENLAFAXINE HCL 37.5 MG CAP.SR.24H PO SCH (09:55)
[2018-05-25] MEDS: ENOXAPARIN SODIUM 40 MG/0.4 ML SYRG SC SCH (09:56)
[2018-05-25] MEDS: POTASSIUM CHLORIDE 20 MEQ TABLET.SA PO SCH ×2 (09:56→20:54)
[2018-05-25] MEDS: PANTOPRAZOLE SODIUM 40 MG TABLET.EC PO SCH (09:56)
[2018-05-25] MEDS: METOPROLOL TARTRATE 50 MG TABLET PO SCH ×2 (09:57→20:56)
[2018-05-25] MEDS: hydrALAZINE HCL 50 MG TABLET PO SCH ×4 (09:57→20:54)
[2018-05-25] MEDS: INSULIN DETEMIR 100 UNITS/ML VIAL SC SCH ×2 (10:01→21:01)
[2018-05-25] MEDS: HYDROcodone/ACETAMINOPHEN 1 EACH TABLET PO PRN ×2 (10:08→20:52)
[2018-05-25] MEDS: ALBUTEROL SULFATE 2.5 MG/0.5 ML VIAL.NEB IH SCH ×5 (11:23→22:00)
[2018-05-25] MEDS: INSULIN REGULAR, HUMAN 100 UNITS/ML VIAL SC SCH ×5 (12:03→21:00)
--- NOTE | 2018-05-25 17:47 | HP ---
Chief Complaint - Chief Complaint Date of Service: 05/25/18 Time of Service: 17:08 History of Present Illness: 72 y/o female nursing room resident with PMHx of CHF, HTN, DM2, Hypothyroidism , GERD, Renal cell Ca on chemo, Depression/anxiety was brought to ER due to worsening SOB, pleuritic chest pain, productive cough of 2 days duration. She denied fever or chills. Px reports that her symptoms started with a persistent coughing that later became hacking in nature and productive of a yellowish sputum. Followed by worsening shortness of breath and chest congestion. Px recently started chemotherapy for renal cell carcinoma, which might be a contributing factor to illness. She also complained of significant lumbar pain. Medical History (Last Reviewed 05/25/18 @ 17:16 by Karolina Wallace MD) Altered mental status Anemia Anxiety Anxiety disorder Benign neoplasm of kidney Complex regional pain syndrome Dementia Depression Diabetes mellitus type 2 in obese Eczema Eczema Encephalopathy Encephalopathy GERD (gastroesophageal reflux disease) Gastro-esophageal reflux Gout Gout History of femur fracture Hyperlipidemia Hypertension Hyponatremia Hypovolemia Intervertebral disc disorder Major depressive disorder Malignant neoplasm of kidney Morbid obesity Obesity Osteoarthritis Polyosteoarthritis Spinal stenosis TIA (transient ischemic attack) Urinary retention Surgical History: Surgical History (Last Reviewed 05/25/18 @ 04:39 by Jan Farrar DO) H/O thyroidectomy History of hernia repair History of total right knee replacement Family History: Family History (Last Updated 04/05/18 @ 18:56 by Mary Atkinson RN) Mother Unknown family medical history Father Unknown family medical history Social History: Patient Lives/Resources [facility] Utilized Occupation retired business case analyst Preferred Language Icelandic Smoking Status Former smoker Have you smoked in the past 12 No months Abuse History No History of abuse Psych History Hx of Depression Review Of Systems (GEN) - Review of Systems Generalized/Overall Review: Present: Chills, Fatigue, Weight gain Respiratory: Present: Cough, Shortness of Breath, Orthopnea Genitourinary: Present: Hematuria Musculoskeletal: Present: Back Pain Neurological: Present: Anxiety Skin: Present: No Symptoms Reported Immunizations: IMMUNIZATION HX Immunizations Up to Date Yes History of Influenza Vaccine Yes Hx Pneumococcal Vaccination Yes Allergies/Adverse Reactions: Allergies Allergy/AdvReac Type Severity Reaction Status Date / Time amitriptyline [Amitriptyline] Allergy Intermediate Other Verified 05/25/18 05:49 Penicillins Allergy Intermediate Other Verified 05/25/18 05:49 duloxetine HCl Allergy Verified 05/25/18 05:49 [From Cymbalta] duloxetine [Duloxetine] AdvReac Intermediate Other Verified 05/25/18 05:49 nortriptyline [Nortriptyline] AdvReac Intermediate Other Verified 05/25/18 05:49 tramadol AdvReac Intermediate Nausea Verified 05/25/18 05:49 gemfibrozil [Gemfibrozil] AdvReac Mild Nausea Verified 05/25/18 05:49 morphine AdvReac Mild Vomiting Verified 05/25/18 05:49 oxycodone HCl [From Percocet] AdvReac Verified 05/25/18 05:49 propoxyphene napsylate AdvReac Verified 05/25/18 05:49 [From Darvocet-N] Home Medications: HOME MEDICATIONS Acetaminophen [Tylenol] 1,000 mg PO Q8H PRN 12/31/17 [Last Taken Unknown] Allopurinol [Zyloprim] 100 mg PO DAILY 12/31/17 [Last Taken Unknown] Bupropion HCl [Bupropion HCl ER] 150 mg PO DAILY 12/31/17 [Last Taken Unknown] Calcium Carbonate [Calcium] 1 tab PO TID 12/31/17 [Last Taken Unknown] Cholecalciferol (Vitamin D3) [Vitamin D3] 50,000 unit PO FR 12/31/17 [Last Taken Unknown] Clonidine HCl [Clonidine HCl ER] 1 tab PO BID 12/31/17 [Last Taken Unknown] Cyclobenzaprine HCl 10 mg PO BID 12/31/17 [Last Taken Unknown] Fluticasone Propionate [Flonase Allergy Relief] 1 spray NS DAILY 12/31/17 [Last Taken Unknown] Furosemide [Lasix] 80 mg PO BID 12/31/17 [Last Taken Unknown] Insulin Detemir [Levemir] 90 units SC BID 12/31/17 [Last Taken Unknown] Insulin Regular, Human [Novolin R] 12 units SC TID 12/31/17 [Last Taken Unknown] Insulin Regular, Human [Novolin R] See Protocol SC ACHS 12/31/17 [Last Taken Unknown] Levothyroxine Sodium [Levoxyl] 125 mcg PO DAILY 12/31/17 [Last Taken Unknown] Magnesium Hydroxide [Milk Of Magnesia] 30 ml PO 3XW 12/31/17 [Last Taken Unknown ] Menthol [[place] Cough Drops] 1 lozenge MM PRN PRN 12/31/17 [Last Taken Unknown] Metoprolol Tartrate 50 mg PO BID 12/31/17 [Last Taken Unknown] Multivitamin with Minerals [Multivitamins with Minerals] 1 each PO DAILY [Last Taken Unknown] Omeprazole 40 mg PO DAILY 12/31/17 [Last Taken Unknown] Potassium Chloride 20 meq PO BID 12/31/17 [Last Taken Unknown] Pregabalin [Lyrica] 50 mg PO DAILY 12/31/17 [Last Taken Unknown] Sennosides/Docusate Sodium [Senna-Docusate Sodium Tablet] 2 tab PO BID 12/31/17 [Last Taken Unknown] Sodium Chloride [Saline Nose [place]] 1 spray NS HS 12/31/17 [Last Taken Unknown] Venlafaxine HCl [Venlafaxine HCl ER] 75 mg PO DAILY 12/31/17 [Last Taken Unknown ] hydrALAZINE HCL [Hydralazine HCl] 50 mg PO QID 12/31/17 [Last Taken Unknown] Bupropion HCl 150 mg PO Q2D 04/05/18 [Last Taken 04/03/18] HYDROcodone/ACETAMINOPHEN [[place] 5-325 Tablet] 2 tab PO Q6H PRN 04/05/18 [Last Taken Unknown] Magnesium Hydroxide [Milk Of Magnesia] 15 ml PO DAILY PRN 04/05/18 [Last Taken Unknown] Menthol [Biofreeze] 1 appl TP BID PRN 04/05/18 [Last Taken Unknown] Metolazone [Zaroxolyn] 5 mg PO DAILY 04/05/18 [Last Taken Unknown] Polyethylene Glycol 3350 [Miralax] 17 gm PO DAILY 04/05/18 [Last Taken Unknown] Saliva Stimulant Agents Comb.3 [Biotene Moisturizing Mouth] 1 spray PO DAILY PRN 04/05/18 [Last Taken Unknown] Ciprofloxacin HCl [Cipro] 500 mg PO BID #20 tab 04/06/18 [Last Taken Unknown] buPROPion HCL [Wellbutrin Xl] 150 mg PO Q48H tab.sr.24h 04/06/18 [Last Taken Unknown] alprazolam 1 mg tablet 1 mg PO .COMPLEX #60 tab 04/13/18 [Last Taken Unknown] Exam - Exam Vital Signs: Vital Signs - Last Taken Temp 36.8 C 05/25/18 16:53 Pulse 78 05/25/18 17:00 Resp 18 05/25/18 17:00 BP 145/59 05/25/18 16:53 Pulse Ox 91 L 05/25/18 17:00 Constitutional: Present: Morbidly obese Eye Exam: bilateral eye: PERRL, EOMI Neck: Present: non-tender, full range of motion Back Exam: Present: vertebral tenderness Respiratory: Present: respiratory distress, crackles - Crackles on right lung base Cardiovascular/Chest: Present: normal peripheral pulses, regular rate, rhythm, no chest tenderness, no JVD Peripheral Pulses: carotid (R): 4+, carotid (L): 4+, femoral (R): 4+, femoral (L ): 4+, dorsalis-pedis (R): 4+, dorsalis-pedis (L): 4+, radial (R): 4+, radial (L ): 4+ Abdomen: Present: obese Extremity: Present: pedal edema Skin Exam: Present: normal color Lymphatic: Present: no adenopathy 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2 H (0.0-1.0) k/mm3 Potassium 2.7 L (3.4-4.6) mmol/L Chloride 95 L (97-106) mmol/L Carbon Dioxide 33.0 H (24-32.6) mmol/L BUN 29 H (3-23) mg/dL Est GFR (Non-Af Amer) 43 L (60-130) mL/min BUN/Creatinine Ratio 22.7 H (9.0-21.6) Random Glucose 185 H (70-110) mg/dL Calcium Adj for Albumin 10.3 H (8.4-10.2) mg/dL B-Natriuretic Peptide 5522 H (5-325) pg/mL Albumin 3.1 L (3.4-5.0) gm/dl Laboratory Results WBC 16.5 K/mm3 (4.0-10.5) H 05/25/18 02:30 RBC 3.47 M/mm3 (4.2-5.4) L 05/25/18 02:30 Hgb 10.2 gm/dL (12.5-16.0) L 05/25/18 02:30 Hct 32.4 % (37.0-47.0) L 05/25/18 02:30 MCV 93.4 fl (78-100) 05/25/18 02:30 MCH 29.4 pg (27-31) 05/25/18 02:30 MCHC 31.5 g/dl (32-36) L 05/25/18 02:30 RDW 17.2 % (11.5-14.0) H 05/25/18 02:30 Plt Count 235 K/mm3 (150-450) 05/25/18 02:30 MPV 10.5 fl (8-12.5) 05/25/18 02:30 Neutrophils % (Manual) 80 % (42-75) H 05/25/18 02:30 Lymphocytes % (Manual) 10 % (20-51) L 05/25/18 02:30 Monocytes % (Manual) 7 % (0-9) 05/25/18 02:30 Eosinophils % (Manual) 3 % (0-3) 05/25/18 02:30 Neutrophils # (Manual) 13.2 K/mm3 (1.3-6.0) H 05/25/18 02:30 Lymphocytes # (Manual) 1.7 k/mm3 (1.5-3.5) 05/25/18 02:30 Monocytes # (Manual) 1.2 k/mm3 (0.0-1.0) H 05/25/18 02:30 Eosinophils # (Manual) 0.5 k/mm3 (0.0-0.7) 05/25/18 02:30 Platelet Estimate Normal (NORMAL) 05/25/18 02:30 RBC Morphology Normal (NORMAL) 05/25/18 02:30 Sodium 137 mmol/L (132-142) 05/25/18 02:30 Plasma Sodium 138 mmol/L (130-142) 05/25/18 02:30 Potassium 2.7 mmol/L (3.4-4.6) L 05/25/18 02:30 Chloride 95 mmol/L (97-106) L 05/25/18 02:30 Carbon Dioxide 33.0 mmol/L (24-32.6) H 05/25/18 02:30 Anion Gap 11.7 mmol/L (6.8-13.8) 05/25/18 02:30 BUN 29 mg/dL (3-23) H 05/25/18 02:30 Creatinine 1.28 mg/dL (0.4-1.4) 05/25/18 02:30 Est GFR (Non-Af Amer) 43 mL/min (60-130) L 05/25/18 02:30 BUN/Creatinine Ratio 22.7 (9.0-21.6) H 05/25/18 02:30 Random Glucose 185 mg/dL (70-110) H 05/25/18 02:30 Calcium 9.9 mg/dL (7.9-10.9) 05/25/18 02:30 Calcium Adj for Albumin 10.3 mg/dL (8.4-10.2) H 05/25/18 02:30 Total Bilirubin 0.5 mg/dL (0.0-1.1) 05/25/18 02:30 AST 17 U/L (0-48) 05/25/18 02:30 ALT 22 U/L (19-67) 05/25/18 02:30 Alkaline Phosphatase 102 U/L (50-170) 05/25/18 02:30 B-Natriuretic Peptide 5522 pg/mL (5-325) H 05/25/18 02:30 Total Protein 7.3 gm/dL (6.2-8.2) 05/25/18 02:30 Albumin 3.1 gm/dl (3.4-5.0) L 05/25/18 02:30 Assessment/Plan - Narrative Narrative: 72 y/o female correction resident was brought to our ER due to worsening SOB, pleuritic chest pain worst on Right side, and productive cough of 2 days duration. Upon evaluation in the ER, patient was found to be dyspneic, and hypoxic with a O2 sat below 90. Px recently started chemotherapy for renal cell carcinoma, so immunosuppresion is suspected of being a contributing factor to her illness. ER labs revealed leukocytosis with left shift, hypokalemia, and a BNP above 5000. Px was noted to have crackles on auscultation and a persistent cough. CXR revealed right lobar infiltrated and bilateral pulmonary edema. Therefore after evaluating the patient and her chart, a decision to admit was made and patient was admitted to our inpatient med/surg rosales for treatment with IV antibiotics, IV diuretics, bronchodilators, oxygen therapy, antihypertensives , analgesics. Sputum and blood cultures were taken and follow up labs were ordered. We will monitor her progress closely. - Assessment/Plan (1) Pneumonia Problem: Acute Qualifiers: Pneumonia type: due to unspecified organism Laterality: right Lung location: middle lobe of lung Qualified Code(s): J18.1 - Lobar pneumonia, unspecified organism (2) Heart failure, chronic, with acute decompensation Problem: Acute Qualifiers: Heart failure type: systolic Qualified Code(s): I50.23 - Acute on chronic systolic (congestive) heart failure (3) Hypertension Problem: Chronic Qualifiers: Qualified Code(s): I10 - Essential (primary) hypertension (4) Pulmonary edema with congestive heart failure Problem: Acute
[2018-05-25] MEDS ORDERED: FUROSEMIDE 10 MG/ML VIAL IV SCH (21:00)
[2018-05-25] MEDS ORDERED: SENNOSIDES/DOCUSATE SODIUM 1 TAB TABLET PO SCH (21:00)
[2018-05-26] MEDS: ALBUTEROL SULFATE 2.5 MG/0.5 ML VIAL.NEB IH SCH ×2 (02:10→06:05)
[2018-05-26] MEDS: HYDROcodone/ACETAMINOPHEN 1 EACH TABLET PO PRN (03:02)
[2018-05-26 05:36] LABS: Hematocrit 33.2 % (37.0-47.0); Hemoglobin 10.3 gm/dL (12.5-16.0); Mean Cell Volume 93.3 fl (78-100); Mean Corpuscular Hemoglobin 28.9 pg (27-31); Mean Platelet Volume 10.1 fl (8-12.5); Neutrophil # 8.9 K/mm3 (1.3-6.0); Neutrophil % 66.7 % (42-75.0); Platelet Count 260 K/mm3 (150-450); Red Blood Count 3.56 M/mm3 (4.2-5.4); Red Cell Distribution Width 17.2 % (11.5-14.0); White Blood Count 13.3 K/mm3 (4.0-10.5)
[2018-05-26 05:53] LABS: Anion Gap 11.1 mmol/L (6.8-13.8); BUN/Creatinine Ratio 23.2 (9.0-21.6); Bilirubin, Total 0.5 mg/dL (0.0-1.1); Ca. Corrected For Albumin 10.6 mg/dL (8.4-10.2); Calcium * 10.1 mg/dL (7.9-10.9); Carbon Dioxide 35.1 mmol/L (24-32.6); Magnesium 1.3 mg/dL (1.2-2.8); Total Protein 7.6 gm/dL (6.2-8.2)
[2018-05-26 06:11] LABS: Potassium 2.2 mmol/L (3.4-4.6)
[2018-05-26] MEDS: INSULIN REGULAR, HUMAN 100 UNITS/ML VIAL SC SCH ×7 (07:34→20:44)
[2018-05-26] MEDS: PANTOPRAZOLE SODIUM 40 MG TABLET.EC PO SCH (07:35)
[2018-05-26] MEDS ORDERED: MAGNESIUM HYDROXIDE 30 ML UDC PO PRN (08:00)
[2018-05-26] MEDS ORDERED: ACETAMINOPHEN 500 MG TABLET PO PRN (08:00)
[2018-05-26] MEDS ORDERED: POTASSIUM CHLORIDE 40 MEQ in 0.5 NORMAL SALINE 1,000 ML IV SCH (08:30)
[2018-05-26] MEDS ORDERED: FUROSEMIDE 10 MG/ML VIAL IV SCH (09:00)
[2018-05-26] MEDS ORDERED: CLONIDINE HCL PO SCH (09:00)
[2018-05-26] MEDS ORDERED: [UNRECOGNIZED DRUG - REMARK] NS SCH (09:00)
[2018-05-26] MEDS: FLUTICASONE PROPIONATE 120 SPRAY INHALER NS SCH (09:30)
[2018-05-26] MEDS: CLONIDINE HCL 0.1 MG TABLET PO SCH ×3 (09:31→17:39)
[2018-05-26] MEDS: LEVOTHYROXINE SODIUM 125 MCG TABLET PO SCH (09:31)
[2018-05-26] MEDS: VENLAFAXINE HCL 37.5 MG CAP.SR.24H PO SCH (09:31)
[2018-05-26] MEDS: SENNOSIDES/DOCUSATE SODIUM 1 TAB TABLET PO SCH ×2 (09:31→20:37)
[2018-05-26] MEDS: CYCLOBENZAPRINE HCL 10 MG TABLET PO SCH ×2 (09:32→20:35)
[2018-05-26] MEDS: buPROPion HCL 150 MG TABLET.SA PO SCH (09:32)
[2018-05-26] MEDS: ALLOPURINOL 100 MG TABLET PO SCH (09:32)
[2018-05-26] MEDS: POTASSIUM CHLORIDE 20 MEQ TABLET.SA PO SCH ×2 (09:32→20:36)
[2018-05-26] MEDS: hydrALAZINE HCL 50 MG TABLET PO SCH ×4 (09:32→20:36)
[2018-05-26] MEDS: METOPROLOL TARTRATE 50 MG TABLET PO SCH ×2 (09:33→20:34)
[2018-05-26] MEDS: PREGABALIN 50 MG CAPSULE PO SCH (09:33)
[2018-05-26] MEDS: FUROSEMIDE 40 MG, FUROSEMIDE 20 MG IV SCH ×4 (09:33→20:39)
[2018-05-26] MEDS: ENOXAPARIN SODIUM 40 MG/0.4 ML SYRG SC SCH (09:34)
[2018-05-26] MEDS: INSULIN DETEMIR 100 UNITS/ML VIAL SC SCH ×2 (09:34→20:45)
[2018-05-26] MEDS: POTASSIUM CHLORIDE IN WATER 100 ML IV SCH ×8 (09:36→20:43)
--- NOTE | 2018-05-26 09:54 | PN ---
Subjective - Date and Time Seen Date: 05/26/18 Time: 09:30 Subjective Narrative: I'm breathing better but I have low back pain. Objective - Review of Systems Generalized/Overall Review: Reports: No Symptoms Reported EENTM: Reports: No Symptoms Reported Respiratory: Reports: No Symptoms Reported Cardiac: Reports: No Symptoms Reported Abdominal: Reports: No Symptoms Reported Genitourinary Symptoms: Reports: No Symptoms Reported Musculoskeletal Complaints: Reports: Back Pain Neurological: Reports: No Symptoms Reported Skin: Reports: No Symptoms Reported Endocrine: Reports: No Symptoms Reported - Vitals Vitals: Last Vital Signs Temp 36.6 C 05/26/18 07:27 Pulse 84 05/26/18 07:27 Resp 18 05/26/18 07:27 BP 148/85 05/26/18 07:27 Pulse Ox 96 05/26/18 07:27 - Abnormal Lab Findings Abnormal Lab Findings: Abnormal Lab Results 05/26/18 05/26/18 Range/Units 05:26 05:26 WBC 13.3 H (4.0-10.5) K/mm3 RBC 3.56 L (4.2-5.4) M/mm3 Hgb 10.3 L (12.5-16.0) gm/dL Hct 33.2 L (37.0-47.0) % MCHC 31.0 L (32-36) g/dl RDW 17.2 H (11.5-14.0) % Immature Gran % (Auto) 0.80 H (0.001-0.429) % Immature Gran # (Auto) 0.11 H (0.000-0.0310) K/mm3 Lymphocytes % 17.4 L (20-51) % Monocytes % 10.8 H (0.0-9) % Eosinophils % 3.8 H (0.0-3.0) % Neutrophils # 8.9 H (1.3-6.0) K/mm3 Monocytes # 1.4 H (0.0-1.0) k/mm3 Potassium 2.2 L* (3.4-4.6) mmol/L Chloride 96 L (97-106) mmol/L Carbon Dioxide 35.1 H (24-32.6) mmol/L BUN 26 H (3-23) mg/dL Est GFR (Non-Af Amer) 51 L (60-130) mL/min BUN/Creatinine Ratio 23.2 H (9.0-21.6) Calcium Adj for Albumin 10.6 H (8.4-10.2) mg/dL Albumin 3.0 L (3.4-5.0) gm/dl Comments:: Hypokalemia noted on labs, KCL ordered. - Exam Constitutional: Present: Alert, Oriented x3, Cooperative, Elderly, Morbidly obese ENT Exam: Present: normal ENT inspection, hearing grossly normal, pharynx normal , TMs normal Neck: Present: non-tender, full range of motion, normal inspection Breasts: Present: Exam deferred Respiratory: Present: crackles, rales - Bibasilar rales Cardiovascular/Chest: Present: normal peripheral pulses, regular rate, rhythm, edema Abdomen: Present: Normal bowel sounds, soft, nontender, nondistended, obese /Rectal: Present: Exam deferred Extremity: Present: lower extremity edema - Scott. pedal edema 2+ Assessment/Plan Plan Narrative: 72 y/o female on HD#2 admitted for Rt. lobar pneumonia and decompensated CHF, was evaluated at bedside and was found to be afebrile and in no acute acute distress. Px reports feeling better and demostrates clinical improvement since admission. She is less fluid overloaded and is responding well to diuretics. Her breathing is less labored, there is less crackles on auscultation, and pedal edema has improved. Worsening Hypokalemia of 2.2 was noted on today's labs , therefore IV KCL was ordered with f/u K levels. She has not had fever or chills and WBCs are declining. Her only complaint was low back pain, therefore pain meds were optimized. We will reevaluate her with labs and CXR in the morning and continue to monitor her closely. - Problems/Diagnosis (1) Pneumonia Problem: Acute Qualifiers: Pneumonia type: due to unspecified organism Laterality: right Lung location: middle lobe of lung Qualified Code(s): J18.1 - Lobar pneumonia, unspecified organism (2) Heart failure, chronic, with acute decompensation Problem: Acute Qualifiers: Heart failure type: systolic Qualified Code(s): I50.23 - Acute on chronic systolic (congestive) heart failure (3) Hypertension Problem: Chronic Qualifiers: Qualified Code(s): I10 - Essential (primary) hypertension (4) Pulmonary edema with congestive heart failure Problem: Acute (5) Hypokalemia Problem: Acute Narrative: Acute on chronic.
[2018-05-26] MEDS: LEVALBUTEROL HCL 1.25 MG/3 ML AMPUL IH SCH ×3 (10:02→20:49)
[2018-05-26] MEDS: ALPRAZolam 1 MG TABLET PO PRN (10:58)
[2018-05-26] MEDS ORDERED: PAZOPANIB HCL PO SCH ×2 (11:00→21:00)
[2018-05-26] MEDS: HYDROcodone/ACETAMINOPHEN 1 EACH TABLET PO SCH ×2 (12:10→18:23)
[2018-05-26 12:31] LABS: Urine Bilirubin Negative (NEGATIVE); Urine Blood 250 /ul (NEGATIVE); Urine Ketone Negative (NEGATIVE); Urine Nitrite Negative (NEGATIVE); Urine Protein Negative (NEGATIVE); Urine Urobilinogen Normal (NORMAL); Urine pH 6.5 pH (5.0-7.0)
[2018-05-26 12:55] LABS: Urine Appearance Slightly Cloudy (CLEAR); Urine Bacteria TRACE; Urine Color Yellow; Urine RBC >50 /hpf (0-5); Urine WBC 0-5 /hpf (0-5)
[2018-05-26] MEDS ORDERED: ALPRAZolam 1 MG TABLET PO SCH (21:00)
[2018-05-27] MEDS: HYDROcodone/ACETAMINOPHEN 1 EACH TABLET PO SCH ×3 (00:03→14:06)
[2018-05-27 05:36] LABS: Hemoglobin 10.4 gm/dL (12.5-16.0); Mean Cell Volume 93.2 fl (78-100); Mean Corpuscular Hemoglobin 29.4 pg (27-31); Mean Corpuscular Hgb Conc 31.5 g/dl (32-36); Mean Platelet Volume 10.4 fl (8-12.5); Neutrophil # 7.1 K/mm3 (1.3-6.0); Neutrophil % 65.1 % (42-75.0); Platelet Count 292 K/mm3 (150-450); Red Blood Count 3.54 M/mm3 (4.2-5.4); Red Cell Distribution Width 17.4 % (11.5-14.0); White Blood Count 10.9 K/mm3 (4.0-10.5)
[2018-05-27 05:47] LABS: Anion Gap 8.2 mmol/L (6.8-13.8); BUN/Creatinine Ratio 25.9 (9.0-21.6); Calcium * 9.9 mg/dL (7.9-10.9); Carbon Dioxide 33.4 mmol/L (24-32.6); Estimated Creat Clear 43.6; Potassium 2.6 mmol/L (3.4-4.6)
[2018-05-27] MEDS ORDERED: POTASSIUM CHLORIDE IN WATER 100 ML IV SCH (06:00)
[2018-05-27] MEDS ORDERED: LEVOFLOXACIN IN DEXTROSE 5 % 750 MG/150 ML BAG IV SCH (06:00)
[2018-05-27] MEDS: LEVALBUTEROL HCL 1.25 MG/3 ML AMPUL IH SCH (06:07)
[2018-05-27] MEDS: LEVOTHYROXINE SODIUM 125 MCG TABLET PO SCH (06:32)
[2018-05-27] MEDS: PANTOPRAZOLE SODIUM 40 MG TABLET.EC PO SCH (06:32)
[2018-05-27] MEDS: POTASSIUM CHLORIDE IN WATER 100 ML IV SCH ×4 (06:35→10:22)
[2018-05-27] MEDS: INSULIN REGULAR, HUMAN 100 UNITS/ML VIAL SC SCH ×4 (06:55→14:10)
[2018-05-27] MEDS: buPROPion HCL 150 MG TABLET.SA PO SCH (08:54)
[2018-05-27] MEDS: CYCLOBENZAPRINE HCL 10 MG TABLET PO SCH (08:55)
[2018-05-27] MEDS: METOPROLOL TARTRATE 50 MG TABLET PO SCH (08:55)
[2018-05-27] MEDS: CLONIDINE HCL 0.1 MG TABLET PO SCH ×2 (08:55→14:07)
[2018-05-27] MEDS: POTASSIUM CHLORIDE 20 MEQ TABLET.SA PO SCH (08:56)
[2018-05-27] MEDS: hydrALAZINE HCL 50 MG TABLET PO SCH ×2 (08:57→14:07)
[2018-05-27] MEDS: FUROSEMIDE 40 MG, FUROSEMIDE 20 MG IV SCH ×2 (09:00)
[2018-05-27] MEDS: VENLAFAXINE HCL 37.5 MG CAP.SR.24H PO SCH (09:02)
[2018-05-27] MEDS: FLUTICASONE PROPIONATE 120 SPRAY INHALER NS SCH (09:04)
[2018-05-27] MEDS: PREGABALIN 50 MG CAPSULE PO SCH (09:06)
[2018-05-27] MEDS: INSULIN DETEMIR 100 UNITS/ML VIAL SC SCH (09:09)
[2018-05-27] MEDS: ALLOPURINOL 100 MG TABLET PO SCH (09:13)
[2018-05-27] MEDS: SENNOSIDES/DOCUSATE SODIUM 1 TAB TABLET PO SCH (09:19)
[2018-05-27] MEDS: ENOXAPARIN SODIUM 40 MG/0.4 ML SYRG SC SCH (09:20)
[2018-05-27] MEDS: ALPRAZolam 1 MG TABLET PO PRN (10:21)
--- NOTE | 2018-05-27 13:43 | DS ---
(1) Pneumonia Problem: Resolved Qualifiers: Pneumonia type: due to unspecified organism Laterality: right Lung location: middle lobe of lung Qualified Code(s): J18.1 - Lobar pneumonia, unspecified organism (2) Heart failure, chronic, with acute decompensation Diagnosis(s): Decompensation resolved. Problem: Acute Qualifiers: Heart failure type: systolic Qualified Code(s): I50.23 - Acute on chronic systolic (congestive) heart failure (3) Hypertension Problem: Chronic Qualifiers: Qualified Code(s): I10 - Essential (primary) hypertension (4) Pulmonary edema with congestive heart failure Diagnosis(s): Px responded to IV lasix Pulm. edema improved. Problem: Resolved (5) Hypokalemia Problem: Resolved Description of Stay: 72 y/o female was brought to our ER from [facility] due worsening SOB and low O2 sat secondary to decompensated CHF. Leeann arrived at the hospital with labored breathing, hypoxic, and fluid overloaded. CXR revealed right lobar pneumonia and bilateral pulmonary edema. Leeann was admitted to med surge unit and treated with O2 therapy, IV antibiotics, IV diuretics, Potassium replacement, and Insulin therapy for optimal dextrose control. She responded favorably and has shown clinical improvement. Her breathing is less labored and edema has improved in response to IV diuretics. Leukocytosis has also resolved and she has not had any fever. Hypokalemia has improved after replacement. Therefore patient is being discharged with 7 additional days of oral Levaquin and will resume all her routine meds. She was instructed to f/u with her PCP in 3-5 days. Procedures Performed: none Results and Findings: Pending Mircobiology Results 05/25/18 02:30 Blood Blood Culture - Preliminary NO GROWTH AFTER 48 HOURS 05/25/18 04:25 Blood Blood Culture - Preliminary NO GROWTH AFTER 48 HOURS Lab Pending Results 05/25/18 02:30: WBC 16.5 H, RBC 3.47 L, Hgb 10.2 L, Hct 32.4 L, MCV 93.4, MCH 29.4, MCHC 31.5 L, RDW 17.2 H, Plt Count 235, MPV 10.5, Neutrophils % (Manual) 80 H, Lymphocytes % (Manual) 10 L, Monocytes % (Manual) 7, Eosinophils % (Manual ) 3, Neutrophils # (Manual) 13.2 H, Lymphocytes # (Manual) 1.7, Monocytes # ( Manual) 1.2 H, Eosinophils # (Manual) 0.5, Platelet Estimate Normal, RBC Morphology Normal 05/25/18 02:30: Sodium 137, Plasma Sodium 138, Potassium 2.7 L, Chloride 95 L, Carbon Dioxide 33.0 H, Anion Gap 11.7, BUN 29 H, Creatinine 1.28, Est GFR (Non- Af Amer) 43 L, BUN/Creatinine Ratio 22.7 H, Random Glucose 185 H, Calcium 9.9, Calcium Adj for Albumin 10.3 H, Total Bilirubin 0.5, AST 17, ALT 22, Alkaline Phosphatase 102, B-Natriuretic Peptide 5522 H, Total Protein 7.3, Albumin 3.1 L 05/26/18 05:26: WBC 13.3 H, RBC 3.56 L, Hgb 10.3 L, Hct 33.2 L, MCV 93.3, MCH 28.9, MCHC 31.0 L, RDW 17.2 H, Plt Count 260, MPV 10.1, Immature Gran % (Auto) 0.80 H, Immature Gran # (Auto) 0.11 H, Neutrophils % 66.7, Lymphocytes % 17.4 L , Monocytes % 10.8 H, Eosinophils % 3.8 H, Basophils % 0.5, Nucleated RBC % 0.0 , Neutrophils # 8.9 H, Lymphocytes # 2.31, Monocytes # 1.4 H, Eosinophils # 0.5 , Absolute Basophils 0.1 05/26/18 05:26: Sodium 140, Plasma Sodium 140, Potassium 2.2 L*, Chloride 96 L, Carbon Dioxide 35.1 H, Anion Gap 11.1, BUN 26 H, Creatinine 1.12, Est GFR (Non- Af Amer) 51 L, BUN/Creatinine Ratio 23.2 H, Random Glucose 78 D, Calcium 10.1, Calcium Adj for Albumin 10.6 H, Magnesium 1.3, Total Bilirubin 0.5, AST 15, ALT 19, Alkaline Phosphatase 96, Total Protein 7.6, Albumin 3.0 L 05/26/18 11:39: Urine Color Yellow, Urine Appearance Slightly cloudy, Urine pH 6.5, Ur Specific [place] 1.010, Urine Protein Negative, Urine Glucose (UA) Negative, Urine Ketones Negative, Urine Blood 250 H, Urine Nitrate Negative, Urine Bilirubin Negative, Urine Urobilinogen Normal, Ur Leukocyte Esterase 75 H , Urine RBC >50 H, Urine WBC 0-5, Ur Epithelial Cells 0-5, Urine Bacteria Trace 05/26/18 15:00: Potassium 2.7 L D 05/27/18 05:29: WBC 10.9 H, RBC 3.54 L, Hgb 10.4 L, Hct 33.0 L, MCV 93.2, MCH 29.4, MCHC 31.5 L, RDW 17.4 H, Plt Count 292, MPV 10.4, Immature Gran % (Auto) 0.70 H, Immature Gran # (Auto) 0.08 H, Neutrophils % 65.1, Lymphocytes % 19.0 L , Monocytes % 9.7 H, Eosinophils % 5.0 H, Basophils % 0.5, Nucleated RBC % 0.0, Neutrophils # 7.1 H, Lymphocytes # 2.07, Monocytes # 1.1 H, Eosinophils # 0.6, Absolute Basophils 0.1 05/27/18 05:29: Sodium 136, Plasma Sodium 136, Potassium 2.6 L, Chloride 97, Carbon Dioxide 33.4 H, Anion Gap 8.2, BUN 30 H, Creatinine 1.16, Est GFR (Non- Af Amer) 49 L, BUN/Creatinine Ratio 25.9 H, Random Glucose 117 H D, Calcium 9.9 05/27/18 12:26: Potassium 2.9 L Discharge Location: [facility] Disposition: Intermediate Care Facility ICF Condition: Fair Level of Care: ICF Discharge Activity: Activity as tolerated Discharge Diet: Consistent carbs, Low salt Referrals: Declan Rivas DO [Primary Care Provider] - Additional Patient Instructions (free text): From [facility], please call and fax discharge information. Prescriptions (Any new or edited meds): guaiFENesin [Mucinex] 600 mg PO BID #30 tablet.sa Levofloxacin [Levaquin] 750 mg PO Q48H #4 tab Complete Home Medications List: Complete Home Medication List: Acetaminophen [Tylenol] 1,000 mg PO Q8H PRN 12/31/17 Bupropion HCl [Bupropion HCl ER] 150 mg PO DAILY 12/31/17 Calcium Carbonate [Calcium] 1 tab PO TID 12/31/17 Cholecalciferol (Vitamin D3) [Vitamin D3] 50,000 unit PO FR 12/31/17 Clonidine HCl [Clonidine HCl ER] 1 tab PO BID 12/31/17 Cyclobenzaprine HCl 10 mg PO BID 12/31/17 Fluticasone Propionate [Flonase Allergy Relief] 1 spray NS DAILY 12/31/17 Furosemide [Lasix] 80 mg PO BID 12/31/17 Insulin Detemir [Levemir] 90 units SC BID 12/31/17 Insulin Regular, Human [Novolin R] 12 units SC TID 12/31/17 Insulin Regular, Human [Novolin R] See Protocol SC ACHS 12/31/17 Levothyroxine Sodium [Levoxyl] 125 mcg PO DAILY 12/31/17 Magnesium Hydroxide [Milk Of Magnesia] 30 ml PO Q24H PRN 12/31/17 Menthol [[place] Cough Drops] 1 lozenge MM PRN PRN 12/31/17 Metoprolol Tartrate 50 mg PO BID 12/31/17 Multivitamin with Minerals [Multivitamins with Minerals] 1 each PO DAILY Omeprazole 40 mg PO DAILY 12/31/17 Potassium Chloride 40 meq PO BID 12/31/17 Pregabalin [Lyrica] 50 mg PO DAILY 12/31/17 Sennosides/Docusate Sodium [Senna-Docusate Sodium Tablet] 2 tab PO BID 12/31/17 Sodium Chloride [Saline Nose [place]] 1 spray NS 12/31/17 Venlafaxine HCl [Venlafaxine HCl ER] 75 mg PO DAILY 12/31/17 hydrALAZINE HCL [Hydralazine HCl] 50 mg PO QID 12/31/17 HYDROcodone/ACETAMINOPHEN [[place] 5-325 Tablet] 2 tab PO Q6H PRN 04/05/18 Magnesium Hydroxide [Milk Of Magnesia] 15 ml PO Q24H PRN 04/05/18 Menthol [Biofreeze] 1 appl TP BID PRN 04/05/18 Metolazone [Zaroxolyn] 5 mg PO DAILY 04/05/18 Polyethylene Glycol 3350 [Miralax] 17 gm PO DAILY 04/05/18 Saliva Stimulant Agents Comb.3 [Biotene Moisturizing Mouth] 1 spray PO DAILY PRN 04/05/18 ALPRAZolam [Xanax] 1 mg PO HS 05/25/18 Alprazolam 1 mg PO DAILY PRN 05/25/18 Bismoline Powder 1 appl TP BID 05/25/18 Bupropion HCl [Wellbutrin Sr] 150 mg PO DAILY 05/25/18 Hydrophilic Ointment [Aquaphilic Ointment] 1 appl TP HS 05/25/18 Pazopanib HCl [Votrient] 400 mg PO DAILY 05/25/18 Levofloxacin [Levaquin] 750 mg PO Q48H #4 tab 05/27/18 guaiFENesin [Mucinex] 600 mg PO BID #30 tablet.sa 05/27/18 Amb Orders for Discharge: Basic Metabolic Panel Time Frame: 3 Days, Location: Laboratory
[2018-05-27 14:17] VITALS: BP 146/58
== END 2018-05-27 14:45 | DRG 193 ==
LOC: ER 02:03 → MS 04:18
PROVIDERS: ADMIT Family Medicine; ATTEND Family Medicine
DX: F03.90 Unspecified dementia, unspecified severity, without behavioral disturbance, psychotic disturbance, mood disturbance, and anxiety; Z79.4 Long term (current) use of insulin; Z88.8 Allergy status to other drugs, medicaments and biological substances; Z88.0 Allergy status to penicillin; I10 Essential (primary) hypertension; K21.9 Gastro-esophageal reflux disease without esophagitis; I50.23 Acute on chronic systolic (congestive) heart failure; E87.6 Hypokalemia; E78.5 Hyperlipidemia, unspecified; J18.1 Lobar pneumonia, unspecified organism; Z68.41 Body mass index [BMI] 40.0-44.9, adult; Z88.6 Allergy status to analgesic agent; E66.01 Morbid (severe) obesity due to excess calories; F41.8 Other specified anxiety disorders; E11.9 Type 2 diabetes mellitus without complications; Z87.891 Personal history of nicotine dependence
CPT/HCPCS: 36415; 71010; 71045; 80048; 80053; 81001; 83519; 83735; 83880; 84132; 85025; 87040; 87081; 93005; 94640; 94664; 94760; 96365; 96375; 99284

== ENCOUNTER 2019-08-10 14:03 | Observation (INO) ==
[2019-08-10] MEDS ORDERED: FUROSEMIDE 10 MG/ML VIAL IV ONE (14:20)
[2019-08-10] MEDS ORDERED: DILTIAZEM HCL 5 MG/ML VIAL IV ONE (14:20)
[2019-08-10 14:40] LABS: Hemoglobin 8.1 gm/dL (12.5-16.0); Mean Cell Volume 108.9 fl (78-100); Mean Corpuscular Hemoglobin 32.7 pg (27-31); Mean Platelet Volume 12.2 fl (8-12.5); Neutrophil # 7.6 K/mm3 (1.3-6.0); Neutrophil % 70.9 % (42-75.0); Platelet Count 294 K/mm3 (150-450); Red Blood Count 2.48 M/mm3 (4.2-5.4); Red Cell Distribution Width 18.2 % (11.5-14.0); White Blood Count 10.7 K/mm3 (4.0-10.5)
[2019-08-10 14:50] LABS: Prothrombin Time (Patient) 12.7 Seconds (9.1-10.7)
[2019-08-10 14:52] LABS: INR 1.3 INR (0.92-1.08); Partial Thrombolplastin Time 37.1 Seconds (24-32)
[2019-08-10 14:58] LABS: Albumin * 2.6 gm/dl (3.4-5.0); Anion Gap 16.6 mmol/L (6.8-13.8); BUN/Creatinine Ratio 17.2 (9.0-21.6); Bilirubin, Total 0.3 mg/dL (0.0-1.1); Ca. Corrected For Albumin 10.5 mg/dL (8.4-10.2); Calcium * 9.7 mg/dL (7.9-10.9); Carbon Dioxide 19.2 mmol/L (24-32.6); Potassium 3.8 mmol/L (3.4-4.6); Total Protein 6.8 gm/dL (6.2-8.2); Troponin I 0.058 ng/mL (0.00-0.10)
[2019-08-10] MEDS: DILTIAZEM HCL 125 MG in DEXTROSE 5 % IN WATER 100 ML IV PRN ×2 (15:31)
[2019-08-10] MEDS ORDERED: ACETAMINOPHEN 325 MG TABLET PO ONE (16:37)
--- NOTE | 2019-08-10 16:48 | ERNOTE ---
Dyspnea - Date Date of Service: 08/10/19 - General Presenting Symptoms: shortness of breath Time Seen by Provider: 08/10/19 14:18 Source: patient, family, EMS Exam Limitations: no limitations - Immun/Allergies/Home Medications Immunizations: IMMUNIZATION HX Immunizations Up to Date Yes History of Influenza Vaccine Yes Hx Pneumococcal Vaccination Yes Allergies/Adverse Reactions: Allergies amitriptyline [Amitriptyline] Allergy (Intermediate, Verified 07/31/19 16:20) Other "makes crazy" Penicillins Allergy (Intermediate, Verified 07/31/19 16:20) Other rash duloxetine HCl [From Cymbalta] Allergy (Unknown, Verified 07/31/19 16:20) Unknown clonazepam [From Klonopin] Adverse Reaction (Severe, Verified 07/31/19 16:20) Agitation and confusion hydromorphone [From Dilaudid] Adverse Reaction (Severe, Verified 07/31/19 16:20) Agitation and confusion duloxetine [Duloxetine] Adverse Reaction (Intermediate, Verified 07/31/19 16:20) Other palpatations dizziness nortriptyline [Nortriptyline] Adverse Reaction (Intermediate, Verified 07/31/19 16:20) Other "makes crazy" tramadol Adverse Reaction (Intermediate, Verified 07/31/19 16:20) Nausea gemfibrozil [Gemfibrozil] Adverse Reaction (Mild, Verified 07/31/19 16:20) Nausea diarrhea morphine Adverse Reaction (Mild, Verified 07/31/19 16:20) Vomiting oxycodone HCl [From Percocet] Adverse Reaction (Unknown, Verified 07/31/19 16:20) Unknown propoxyphene [From Darvocet-N] Adverse Reaction (Unknown, Verified 07/31/19 16:20) Unknown propoxyphene napsylate [From Darvocet-N] Adverse Reaction (Unknown, Verified 07/31/19 16:20) Unknown Home Medications: HOME MEDICATIONS Acetaminophen [Tylenol] 1,000 mg PO Q8H PRN 11/24/18 [Last Taken 05/15/19] Albuterol Sulfate [Proair Respiclick] 2 puff INHALATION Q6H PRN 11/24/18 [Last Taken Unknown] Cyclobenzaprine HCl 5 mg PO BID 11/24/18 [Last Taken 05/14/19] Lidocaine [Lidocaine Pain Relief] 1 ea TOPICAL BID 11/24/18 [Last Taken 05/14/19] Multivitamin [One-Daily Multi-Vitamin] 1 tab PO DAILY 11/24/18 [Last Taken 05/14/19] Polyethylene Glycol 3350 [Miralax] 17 gm PO DAILY 11/24/18 [Last Taken 05/14/19] Sennosides/Docusate Sodium [Senna-S Laxative Tablet] 2 tab PO DAILY 11/24/18 [Last Taken 05/14/19] amLODIPine BESYLATE [Norvasc] 5 mg PO DAILY 11/24/18 [Last Taken 05/15/19] apixaban 5 mg tablet 5 mg PO BID #1 tab 12/12/18 [Last Taken 05/14/19] levothyroxine 100 mcg tablet 100 mcg PO DAILY #1 tab 12/12/18 [Last Taken 05/14/19] megestrol 40 mg tablet 40 mg PO DAILY 01/12/19 [Last Taken 05/14/19] fluticasone propionate 50 mcg/actuation nasal spray,suspension 1 spray ELVIS DAILY 02/21/19 [Last Taken 05/14/19] alprazolam 0.5 mg tablet 0.5 mg PO HS #30 tab 04/05/19 [Last Taken 05/14/19] Magnesium Hydroxide [Milk Of Magnesia] 30 ml PO DAILY PRN 05/10/19 [Last Taken 05/14/19] Menthol [Biofreeze] 1 appl TOPICAL Q4H PRN 05/10/19 [Last Taken Unknown] Menthol [[place] Cough Drops] 1 alvin MM Q2H PRN 05/10/19 [Last Taken Unknown] Nystatin [Mycostatin 100 Mu/Ml Suspension] 6 ml PO QID 05/10/19 [Last Taken 05/14/19] allopurinol 100 mg tablet 100 mg PO DAILY 05/23/19 [Last Taken Unknown] cholecalciferol (vitamin D3) 50,000 unit tablet 50,000 unit PO QWEEK 05/23/19 [Last Taken Unknown] omeprazole 40 mg capsule,delayed release 40 mg PO DAILY 05/23/19 [Last Taken Unknown] bumetanide 2 mg tablet 2 mg PO BID 06/27/19 [Last Taken Unknown] insulin detemir U-100 100 unit/mL (3 mL) subcutaneous pen 80 unit SUBCUT BID ml 06/27/19 [Last Taken Unknown] insulin regular human 100 unit/mL injection solution 1 sliding scale dose SUBCUT UD ml 06/27/19 [Last Taken Unknown] metoprolol tartrate 50 mg tablet 75 mg PO BID tab 06/27/19 [Last Taken Unknown] potassium chloride 10 mEq tablet,extended release(part/cryst) 20 meq PO TID tab 06/27/19 [Last Taken Unknown] trazodone 50 mg tablet 50 mg PO HS #30 tab 06/27/19 [Last Taken Unknown] pregabalin 50 mg capsule 50 mg PO DAILY #30 cap 07/05/19 [Last Taken Unknown] atorvastatin 40 mg tablet 40 mg PO DAILY 07/28/19 [Last Taken Unknown] megestrol 40 mg tablet 40 mg PO DAILY 07/28/19 [Last Taken Unknown] melatonin 5 mg tablet 5 mg PO HS 07/28/19 [Last Taken Unknown] metolazone 2.5 mg tablet 2.5 mg PO DAILY 07/28/19 [Last Taken Unknown] torsemide 100 mg tablet 100 mg PO DAILY 07/28/19 [Last Taken Unknown] Doxycycline Hyclate [Vibratab] 100 mg PO BID #20 tab 07/31/19 [Last Taken Unknown] - History of Present Illness Narrative: patient with known hx of chf and a-fib presents to ed with a -fib with rvr Severity: moderate Treatment [employer]: none Frequency of episodes: Reports: frequent episodes Modifying Factors - (Improves): Reports: nothing Modifying Factors (Worsens): Reports: nothing Associated Symptoms-Dyspnea: Reports: palpitations Prior Treatment: Reports: recently seen, treated by physician Review of Systems - Review of Systems Constitutional: Present: See HPI EYE: Present: no symptoms reported ENT: Present: no symptoms reported Respiratory: Present: shortness of breath Cardiology: Present: palpitations Gastrointestinal/Abdominal: Present: no symptoms reported Genitourinary: Present: no symptoms reported Musculoskeletal: Present: no symptoms reported Skin: Present: no symptoms reported Neurological: Present: no symptoms reported Endocrine: Present: no symptoms reported Hematologic/Lymphatic: Present: no symptoms reported Psych: Present: no symptoms reported All Other Systems: All systems neg except as marked Medical History (Last Reviewed 08/01/19 @ 11:17 by Autumn Smallwood NP) Altered mental status Anemia Anxiety Anxiety disorder Benign neoplasm of kidney Cancer of kidney Complex regional pain syndrome Dementia Depression Diabetes mellitus type 2 in obese Eczema Eczema Encephalopathy Encephalopathy GERD (gastroesophageal reflux disease) Gastro-esophageal reflux Gout Gout History of femur fracture Hyperlipidemia Hypertension Hyponatremia Hypovolemia Intervertebral disc disorder Major depressive disorder Malignant neoplasm of kidney Morbid obesity Obesity Osteoarthritis Polyosteoarthritis Spinal stenosis TIA (transient ischemic attack) Urinary retention Surgical History: Surgical History (Last Reviewed 08/01/19 @ 11:17 by Autumn Smallwood NP) H/O thyroidectomy History of hernia repair History of total right knee replacement Family History: Family History (Last Reviewed 08/01/19 @ 11:17 by Autumn Smallwood NP) Mother Unknown family medical history Father Unknown family medical history Social History: (Last Reviewed 08/01/19 @ 11:17 by Autumn Smallwood NP) Social History: half-way: Yes Marital status: / number of children: 3 current occupational status: retired Highest education level completed: high school graduate Service: No Tobacco: Smoking Status: Unknown if ever smoked Alcohol: alcohol intake: never Substance Use: substance use type: does not use Dietary Habits: caffeine: Yes Physical Exam - Physical Exam General Appearance: Present: mild distress, anxious Head Exam: Present: normal inspection, no evidence of injury Eye Exam: Normal inspection: bilateral, PERRL: bilateral, EOMI: bilateral Ears, Nose, Throat: Present: normal ENT inspection, normal pharynx Neck: Present: normal inspection, nontender Respiratory: Present: no respiratory distress, normal breath sounds, no accessory muscle use, crackles, rales Cardiovascular/Chest: Present: tachycardia, irregularly irregular Peripheral Pulses: N=norm/S=strong/W=weak/B=bound/A=absent: Carotid (R): Normal, Carotid (L): Normal, Radial (R): Normal, Radial (L): Normal, Femoral (R): Normal, Femoral (L): Normal, Dorsalis-pedis (R): Normal, Dorsalis-pedis (L): Normal Gastrointestinal/Abdominal: Present: normal bowel sounds, nontender, nondistended, soft, no organomegaly Back Exam: Present: normal inspection, normal range of motion, no CVA tenderness, no vertebral tenderness Extremity Exam: Present: normal except -, extremity edema, other - stasis ulcers on lower extremities Neurological Exam: Present: alert, oriented, normal mood/affect, no motor/sensory deficits Skin Exam: Present: normal color, warm/dry Lymphatic Exam: Present: no adenopathy Progress - Date and Time Seen: Date and Time: 08/10/19 16:46 condition improved,discussed case with dr tavares mcdonald and dr jean baptiste who accepts patient for admission here for rate control - Results and Orders Patient's Lab Results:: I have reviewed the patient's lab results. - Vital Signs Patient's Vital Signs:: I have reviewed the patient's vital signs. Vital Signs: Vital Signs 08/10/19 14:03 08/10/19 14:15 08/10/19 14:30 Temperature 36.5 C Pulse Rate 125 H 135 H 132 H Respiratory Rate 30 H 27 H Blood Pressure 148/63 169/91 H 143/67 O2 Sat by Pulse Oximetry 97 97 08/10/19 14:34 08/10/19 14:45 08/10/19 15:15 Temperature Pulse Rate 123 H 120 H 127 H Respiratory Rate 20 26 H Blood Pressure 143/67 143/67 169/63 H O2 Sat by Pulse Oximetry 96 97 08/10/19 15:31 08/10/19 15:45 08/10/19 16:00 Temperature Pulse Rate 120 H 117 H 122 H Respiratory Rate 24 H 20 Blood Pressure 169/63 H 148/60 153/59 H O2 Sat by Pulse Oximetry 97 95 08/10/19 16:30 Temperature Pulse Rate 126 H Respiratory Rate 28 H Blood Pressure 139/73 O2 Sat by Pulse Oximetry 97 - EKG EKG #1 EKG: atrial fibrillation EKG read: Interp. by me - X-Ray X-Ray #1 X-Ray: chest Interpretation: Discd w/ radiologist - no acute process - Progress/Reassessment Chief Complaint: Dyspnea Progress:: Improved - Transfer of Care Expected Disposition: Admit Plan - Plan Plan: to admit to hospital Departure Clinical Impression: Atrial fibrillation with rapid ventricular response - Departure Disposition: Still a patient Condition: Serious Referrals: Cassie Weathers MD [Primary Care Provider] -
[2019-08-10] MEDS ORDERED: NORMAL SALINE 1,000 ML IV PRN (16:59)
[2019-08-10] MEDS ORDERED: MAGNESIUM HYDROXIDE 30 ML UDC PO PRN (17:38)
--- NOTE | 2019-08-10 17:38 | HP ---
Chief Complaint - Chief Complaint Date of Service: 08/10/19 Time of Service: 16:40 Chief Complaint: Shortness of breath x1 day History of Present Illness: 73-year-old female with a past medical history of diabetes mellitus insulin-dep endent, anxiety, depression, CKD 4, diastolic congestive heart failure, morbid obesity, osteoarthritis, TIA, GERD, cancer left kidney, spinal stenosis, hypothyroidism presents from [facility] with complaints of shortness of breath x1 day. In the emergency department she was found to have A. fib with RVR, heart rate ranging from 120s to 140s. She was started on a Cardizem drip. Chest x-ray showed no acute cardiopulmonary abnormality. Blood work showed anemia with hemoglobin of 8.1, hematocrit 27 which is down from her baseline hemoglobin of 11 and hematocrit of 35. Blood glasses showed a pH of 7.41, PCO2 24.2, PO2 78.3, bicarb of 14.8, and O2 sat of 95.9. She is being admitted for management of her heart rate. Patient's principal data architect is Dr. Byrnes was contacted by the emergency room physician was okay with the patient being admitted here for rate control. Medical History (Last Reviewed 08/01/19 @ 11:17 by Autumn Smallwood NP) Altered mental status Anemia Anxiety Anxiety disorder Benign neoplasm of kidney Cancer of kidney Complex regional pain syndrome Dementia Depression Diabetes mellitus type 2 in obese Eczema Eczema Encephalopathy Encephalopathy GERD (gastroesophageal reflux disease) Gastro-esophageal reflux Gout Gout History of femur fracture Hyperlipidemia Hypertension Hyponatremia Hypovolemia Intervertebral disc disorder Major depressive disorder Malignant neoplasm of kidney Morbid obesity Obesity Osteoarthritis Polyosteoarthritis Spinal stenosis TIA (transient ischemic attack) Urinary retention Surgical History: Surgical History (Last Reviewed 08/01/19 @ 11:17 by Autumn Smallwood NP) H/O thyroidectomy History of hernia repair History of total right knee replacement Family History: Family History (Last Reviewed 08/01/19 @ 11:17 by Autumn Smallwood NP) Mother Unknown family medical history Father Unknown family medical history Social History: (Last Reviewed 08/01/19 @ 11:17 by Autumn Smallwood NP) Social History: senior care: Yes Marital status: / number of children: 3 current occupational status: retired Highest education level completed: high school graduate Service: No Tobacco: Smoking Status: Unknown if ever smoked Alcohol: alcohol intake: never Substance Use: substance use type: does not use Dietary Habits: caffeine: Yes Review Of Systems (GEN) - Review of Systems Generalized/Overall Review: Absent: Fever EENTM: Absent: Eye Pain Respiratory: Present: Shortness of Breath. Absent: Wheezing Cardiac: Present: Chest Pain, Edema. Absent: Palpitations Abdominal: Absent: Abdominal Pain Misc: All systems neg except as marked Immunizations: IMMUNIZATION HX Immunizations Up to Date Yes History of Influenza Vaccine Yes Hx Pneumococcal Vaccination Yes Allergies/Adverse Reactions: Allergies Allergy/AdvReac Type Severity Reaction Status Date / Time amitriptyline [Amitriptyline] Allergy Intermediate Other Verified 07/31/19 16:20 Penicillins Allergy Intermediate Other Verified 07/31/19 16:20 duloxetine HCl Allergy Unknown Unknown Verified 07/31/19 16:20 [From Cymbalta] clonazepam [From Klonopin] AdvReac Severe Agitation Verified 07/31/19 16:20 and confusion hydromorphone [From Dilaudid] AdvReac Severe Agitation Verified 07/31/19 16:20 and confusion duloxetine [Duloxetine] AdvReac Intermediate Other Verified 07/31/19 16:20 nortriptyline [Nortriptyline] AdvReac Intermediate Other Verified 07/31/19 16:20 tramadol AdvReac Intermediate Nausea Verified 07/31/19 16:20 gemfibrozil [Gemfibrozil] AdvReac Mild Nausea Verified 07/31/19 16:20 morphine AdvReac Mild Vomiting Verified 07/31/19 16:20 oxycodone HCl [From Percocet] AdvReac Unknown Unknown Verified 07/31/19 16:20 propoxyphene AdvReac Unknown Unknown Verified 07/31/19 16:20 [From Darvocet-N] propoxyphene napsylate AdvReac Unknown Unknown Verified 07/31/19 16:20 [From Darvocet-N] Home Medications: HOME MEDICATIONS Acetaminophen [Tylenol] 1,000 mg PO Q8H PRN 11/24/18 [Last Taken 05/15/19] Albuterol Sulfate [Proair Respiclick] 2 puff INHALATION Q6H PRN 11/24/18 [Last Taken Unknown] Cyclobenzaprine HCl 5 mg PO BID 11/24/18 [Last Taken 05/14/19] Lidocaine [Lidocaine Pain Relief] 1 ea TOPICAL BID 11/24/18 [Last Taken 05/14/19] Multivitamin [One-Daily Multi-Vitamin] 1 tab PO DAILY 11/24/18 [Last Taken 05/14/19] Polyethylene Glycol 3350 [Miralax] 17 gm PO DAILY 11/24/18 [Last Taken 05/14/19] Sennosides/Docusate Sodium [Senna-S Laxative Tablet] 2 tab PO DAILY 11/24/18 [Last Taken 05/14/19] amLODIPine BESYLATE [Norvasc] 5 mg PO DAILY 11/24/18 [Last Taken 05/15/19] apixaban 5 mg tablet 5 mg PO BID #1 tab 12/12/18 [Last Taken 05/14/19] levothyroxine 100 mcg tablet 100 mcg PO DAILY #1 tab 12/12/18 [Last Taken 05/14/19] fluticasone propionate 50 mcg/actuation nasal spray,suspension 1 spray ELVIS DAILY 02/21/19 [Last Taken 05/14/19] Magnesium Hydroxide [Milk Of Magnesia] 30 ml PO DAILY PRN 05/10/19 [Last Taken 05/14/19] Menthol [Biofreeze] 1 appl TOPICAL Q4H PRN 05/10/19 [Last Taken Unknown] Menthol [[place] Cough Drops] 1 alvin MM Q2H PRN 05/10/19 [Last Taken Unknown] allopurinol 100 mg tablet 100 mg PO DAILY 05/23/19 [Last Taken Unknown] cholecalciferol (vitamin D3) 50,000 unit tablet 50,000 unit PO QWEEK 05/23/19 [Last Taken Unknown] omeprazole 40 mg capsule,delayed release 40 mg PO DAILY 05/23/19 [Last Taken Unknown] insulin detemir U-100 100 unit/mL (3 mL) subcutaneous pen 55 unit SUBCUT BID ml 06/27/19 [Last Taken Unknown] insulin regular human 100 unit/mL injection solution 1 sliding scale dose SUBCUT UD ml 06/27/19 [Last Taken Unknown] metoprolol tartrate 50 mg tablet 75 mg PO BID tab 06/27/19 [Last Taken Unknown] potassium chloride 10 mEq tablet,extended release(part/cryst) 50 meq PO TID tab 06/27/19 [Last Taken Unknown] atorvastatin 40 mg tablet 40 mg PO DAILY 07/28/19 [Last Taken Unknown] megestrol 40 mg tablet 40 mg PO DAILY 07/28/19 [Last Taken Unknown] melatonin 5 mg tablet 5 mg PO HS 07/28/19 [Last Taken Unknown] torsemide 100 mg tablet 40 mg PO DAILY 07/28/19 [Last Taken Unknown] Doxycycline Hyclate [Vibratab] 100 mg PO BID #20 tab 07/31/19 [Last Taken Unknown] Carvedilol [Coreg] 12.5 mg PO BID 08/10/19 [Last Taken Unknown] Ondansetron [Zofran Odt] 4 mg PO Q8H PRN 08/10/19 [Last Taken Unknown] Pregabalin 75 mg PO DAILY 08/10/19 [Last Taken Unknown] Exam - Exam Vital Signs: Vital Signs - Last Taken Temp 36.5 C 08/10/19 14:03 Pulse 126 H 08/10/19 16:30 Resp 28 H 08/10/19 16:30 BP 139/73 08/10/19 16:30 Pulse Ox 97 08/10/19 16:30 Constitutional: Present: Alert, Cooperative, Well developed, Well nourished, No distress, Elderly, Obese ENT Exam: Present: hearing grossly normal Eye Exam: bilateral eye: normal inspection, PERRL, EOMI Neck: Present: non-tender, supple, trachea midline. Absent: lymphadenopathy (R), lymphadenopathy (L) Back Exam: Present: normal inspection, no CVA tenderness, no vertebral tenderness Respiratory: Present: lungs clear, no respiratory distress, no accessory muscle use, No wheezing. Absent: crackles, rhonchi Cardiovascular/Chest: Present: no murmur, tachycardia, irregularly irregular, edema - 3+ bilateral legs pitting Peripheral Pulses: dorsalis-pedis (R): 1+, dorsalis-pedis (L): 1+ Abdomen: Present: Normal bowel sounds, soft, nontender, obese Extremity: Present: pedal edema - 3+ bilateral pitting edema of both legs Skin Exam: Present: normal color, warm/dry Neurologic: Present: alert, normal mood/affect Appearance: Present: appropriate appearance, appropriate insight Eye contact: Present: cooperative, good eye contact Thoughts: Present: normal thought pattern, normal mood /affect Diagnostic Studies: Abnormal Lab Results 1108/10/19 08/10/19 Range/Units 14:30 14:30 14:30 WBC 10.7 H (4.0-10.5) K/mm3 RBC 2.48 L (4.2-5.4) M/mm3 Hgb 8.1 L (12.5-16.0) gm/dL Hct 27.0 L (37.0-47.0) % MCV 108.9 H (78-100) fl MCH 32.7 H (27-31) pg MCHC 30.0 L (32-36) g/dl RDW 18.2 H (11.5-14.0) % Immature Gran % (Auto) 0.70 H (0.001-0.429) % Immature Gran # (Auto) 0.08 H (0.000-0.0310) K/mm3 Lymphocytes % 13.4 L (20-51) % Monocytes % 10.7 H (0.0-9) % Eosinophils % 3.6 H (0.0-3.0) % Neutrophils # 7.6 H (1.3-6.0) K/mm3 Lymphocytes # 1.43 L (1.5-3.5) k/mm3 Monocytes # 1.2 H (0.0-1.0) k/mm3 PT 12.7 H (9.1-10.7) Seconds INR (Anticoag Therapy) 1.30 H (0.92-1.08) INR PTT ([place]) 37.1 H (24-32) Seconds pCO2 (32.0-45.0) mmHg pO2 (83.0-108.0) mmHg HCO3 (21.0-28.0) mmol/L Total CO2 (19.0-24.0) mmol/L Base Excess (-2.0-3.0) mmol/L Carbon Dioxide 19.2 L (24-32.6) mmol/L Anion Gap 16.6 H (6.8-13.8) mmol/L BUN 45 H (3-23) mg/dL Creatinine 2.61 H (0.4-1.4) mg/dL Est GFR (Non-Af Amer) 19 L (60-130) mL/min Random Glucose 303 H (70-110) mg/dL Calcium Adj for Albumin 10.5 H (8.4-10.2) mg/dL ALT 12 L (19-67) U/L B-Natriuretic Peptide 4908 H (5-325) pg/mL Albumin 2.6 L (3.4-5.0) gm/dl 08/10/19 Range/Units 14:50 WBC (4.0-10.5) K/mm3 RBC (4.2-5.4) M/mm3 Hgb (12.5-16.0) gm/dL Hct (37.0-47.0) % MCV (78-100) fl MCH (27-31) pg MCHC (32-36) g/dl RDW (11.5-14.0) % Immature Gran % (Auto) (0.001-0.429) % Immature Gran # (Auto) (0.000-0.0310) K/mm3 Lymphocytes % (20-51) % Monocytes % (0.0-9) % Eosinophils % (0.0-3.0) % Neutrophils # (1.3-6.0) K/mm3 Lymphocytes # (1.5-3.5) k/mm3 Monocytes # (0.0-1.0) k/mm3 PT (9.1-10.7) Seconds INR (Anticoag Therapy) (0.92-1.08) INR PTT (Emi) (24-32) Seconds pCO2 24.2 L (32.0-45.0) mmHg pO2 78.3 L (83.0-108.0) mmHg HCO3 14.8 L (21.0-28.0) mmol/L Total CO2 15.6 L (19.0-24.0) mmol/L Base Excess -8.7 L (-2.0-3.0) mmol/L Carbon Dioxide (24-32.6) mmol/L Anion Gap (6.8-13.8) mmol/L BUN (3-23) mg/dL Creatinine (0.4-1.4) mg/dL Est GFR (Non-Af Amer) (60-130) mL/min Random Glucose (70-110) mg/dL Calcium Adj for Albumin (8.4-10.2) mg/dL ALT (19-67) U/L B-Natriuretic Peptide (5-325) pg/mL Albumin (3.4-5.0) gm/dl Laboratory Results WBC 10.7 K/mm3 (4.0-10.5) H 08/10/19 14:30 RBC 2.48 M/mm3 (4.2-5.4) L 08/10/19 14:30 Hgb 8.1 gm/dL (12.5-16.0) L 08/10/19 14:30 Hct 27.0 % (37.0-47.0) L 08/10/19 14:30 MCV 108.9 fl (78-100) H 08/10/19 14:30 MCH 32.7 pg (27-31) H 08/10/19 14:30 MCHC 30.0 g/dl (32-36) L 08/10/19 14:30 RDW 18.2 % (11.5-14.0) H 08/10/19 14:30 Plt Count 294 K/mm3 (150-450) 08/10/19 14:30 MPV 12.2 fl (8-12.5) 08/10/19 14:30 Immature Gran % (Auto) 0.70 % (0.001-0.429) H 08/10/19 14:30 Immature Gran # (Auto) 0.08 K/mm3 (0.000-0.0310) H 08/10/19 14:30 Neutrophils % 70.9 % (42-75.0) 08/10/19 14:30 Lymphocytes % 13.4 % (20-51) L 08/10/19 14:30 Monocytes % 10.7 % (0.0-9) H 08/10/19 14:30 Eosinophils % 3.6 % (0.0-3.0) H 08/10/19 14:30 Basophils % 0.7 % (0.0-1.0) 08/10/19 14:30 Nucleated RBC % 0.0 k/mm3 (0-1) 08/10/19 14:30 Neutrophils # 7.6 K/mm3 (1.3-6.0) H 08/10/19 14:30 Lymphocytes # 1.43 k/mm3 (1.5-3.5) L 08/10/19 14:30 Monocytes # 1.2 k/mm3 (0.0-1.0) H 08/10/19 14:30 Eosinophils # 0.4 k/mm3 (0.0-0.7) 08/10/19 14:30 Absolute Basophils 0.1 k/mm3 (0.0-0.1) 08/10/19 14:30 PT 12.7 Seconds (9.1-10.7) H 08/10/19 14:30 INR (Anticoag Therapy) 1.30 INR (0.92-1.08) H 08/10/19 14:30 PTT (Emi) 37.1 Seconds (24-32) H 08/10/19 14:30 pCO2 24.2 mmHg (32.0-45.0) L 08/10/19 14:50 pO2 78.3 mmHg (83.0-108.0) L 08/10/19 14:50 HCO3 14.8 mmol/L (21.0-28.0) L 08/10/19 14:50 Total CO2 15.6 mmol/L (19.0-24.0) L 08/10/19 14:50 Base Excess -8.7 mmol/L (-2.0-3.0) L 08/10/19 14:50 ABG pH 7.41 (7.35-7.45) 08/10/19 14:50 ABG O2 Sat (Measured) 95.9 % (94.0-98.0) 08/10/19 14:50 Sodium 134 mmol/L (132-142) 08/10/19 14:30 Plasma Sodium 137 mmol/L (130-142) 08/10/19 14:30 Potassium 3.8 mmol/L (3.4-4.6) 08/10/19 14:30 Chloride 102 mmol/L (97-106) 08/10/19 14:30 Carbon Dioxide 19.2 mmol/L (24-32.6) L 08/10/19 14:30 Anion Gap 16.6 mmol/L (6.8-13.8) H 08/10/19 14:30 BUN 45 mg/dL (3-23) H 08/10/19 14:30 Creatinine 2.61 mg/dL (0.4-1.4) H 08/10/19 14:30 Est GFR (Non-Af Amer) 19 mL/min (60-130) L 08/10/19 14:30 BUN/Creatinine Ratio 17.2 (9.0-21.6) 08/10/19 14:30 Random Glucose 303 mg/dL (70-110) H 08/10/19 14:30 Calcium 9.7 mg/dL (7.9-10.9) 08/10/19 14:30 Calcium Adj for Albumin 10.5 mg/dL (8.4-10.2) H 08/10/19 14:30 Total Bilirubin 0.3 mg/dL (0.0-1.1) 08/10/19 14:30 AST 10 U/L (0-48) 08/10/19 14:30 ALT 12 U/L (19-67) L 08/10/19 14:30 Alkaline Phosphatase 130 U/L (50-170) 08/10/19 14:30 Troponin I 0.058 ng/mL (0.00-0.10) 08/10/19 14:30 B-Natriuretic Peptide 4908 pg/mL (5-325) H 08/10/19 14:30 Total Protein 6.8 gm/dL (6.2-8.2) 08/10/19 14:30 Albumin 2.6 gm/dl (3.4-5.0) L 08/10/19 14:30 Assessment/Plan - Narrative Narrative: 73-year-old female with a past medical history of diabetes mellitus insulin-dependent, anxiety, depression, CKD 4, diastolic congestive heart failure, morbid obesity, stage IV renal cell cancer osteoarthritis, TIA, GERD, spinal stenosis, hypothyroidism presents from [facility] with complaints of shortness of breath x1 day. In the emergency department she was found to have A. fib with RVR, heart rate ranging from 120s to 140s. She was started on a Cardizem drip. Chest x-ray showed no acute cardiopulmonary abnormality. Blood work showed anemia with hemoglobin of 8.1, hematocrit 27 which is down from her baseline hemoglobin of 11 and hematocrit of 35. Blood glasses showed a pH of 7.41, PCO2 24.2, PO2 78.3, bicarb of 14.8, and O2 sat of 95.9. She is being admitted for management of her heart rate. Patient's principal data architect is Dr. Byrnes was contacted by the emergency room physician was okay with the patient being admitted here for rate control. Plan #1 continue with Cardizem drip for rate control #2 CBC and BMP in the morning #3 resume home medications for comorbidities #4 gentle diuresis as she tolerates - Assessment/Plan (1) CKD (chronic kidney disease) stage 4, GFR 15-29 ml/min Problem: Acute (2) Edema of both lower extremities Problem: Acute (3) Hypothyroidism Problem: Acute (4) Diabetes mellitus Problem: Chronic (5) Hypertension Problem: Chronic Qualifiers: (6) Obesity, Class III, BMI 40-49.9 (morbid obesity) Problem: Chronic (7) HTN (hypertension) Problem: Chronic Qualifiers: (8) Anxiety Problem: Chronic
[2019-08-10] MEDS: APIXABAN 5 MG TABLET PO SCH (20:04)
[2019-08-10] MEDS: CARVEDILOL 12.5 MG TABLET PO SCH (20:04)
[2019-08-10] MEDS: CYCLOBENZAPRINE HCL 10 MG TABLET PO SCH (20:04)
[2019-08-10] MEDS: LIDOCAINE 1 PATCH ADH..PATCH TP SCH (20:05)
[2019-08-10] MEDS: INSULIN GLARGINE,HUM.REC.ANLOG 100 UNITS/ML VIAL SC SCH (20:16)
[2019-08-10] MEDS ORDERED: METOPROLOL TARTRATE 25 MG TABLET PO SCH (21:00)
[2019-08-10] MEDS ORDERED: MELATONIN 3,000 MCG TABLET PO SCH (21:00)
[2019-08-10] MEDS: ACETAMINOPHEN 500 MG TABLET PO PRN (21:56)
[2019-08-11 06:45] LABS: Hematocrit 27.3 % (37.0-47.0); Hemoglobin 8.4 gm/dL (12.5-16.0); Mean Cell Volume 107.5 fl (78-100); Mean Corpuscular Hemoglobin 33.1 pg (27-31); Mean Corpuscular Hgb Conc 30.8 g/dl (32-36); Mean Platelet Volume 12.4 fl (8-12.5); Neutrophil # 13.1 K/mm3 (1.3-6.0); Neutrophil % 78.4 % (42-75.0); Platelet Count 333 K/mm3 (150-450); Red Blood Count 2.54 M/mm3 (4.2-5.4); White Blood Count 16.7 K/mm3 (4.0-10.5)
[2019-08-11] MEDS: ACETAMINOPHEN 500 MG TABLET PO PRN ×2 (06:53→14:05)
[2019-08-11 07:00] LABS: Albumin * 2.8 gm/dl (3.4-5.0); Anion Gap 17.1 mmol/L (6.8-13.8); BUN/Creatinine Ratio 17.7 (9.0-21.6); Bilirubin, Total 0.7 mg/dL (0.0-1.1); Ca. Corrected For Albumin 10.3 mg/dL (8.4-10.2); Calcium * 9.7 mg/dL (7.9-10.9); Potassium 4.1 mmol/L (3.4-4.6); Total Protein 7.3 gm/dL (6.2-8.2)
[2019-08-11] MEDS ORDERED: LEVOTHYROXINE SODIUM 100 MCG TABLET PO SCH (07:00)
[2019-08-11] MEDS ORDERED: PANTOPRAZOLE SODIUM 40 MG TABLET.EC PO SCH (07:00)
[2019-08-11] MEDS: DILTIAZEM HCL 125 MG in DEXTROSE 5 % IN WATER 100 ML IV PRN ×2 (07:23)
[2019-08-11] MEDS: INSULIN REGULAR, HUMAN 100 UNITS/ML VIAL SC SCH ×4 (07:34→12:02)
[2019-08-11] MEDS ORDERED: ROSUVASTATIN CALCIUM 20 MG TABLET PO SCH (09:00)
[2019-08-11] MEDS ORDERED: POLYETHYLENE GLYCOL 3350 17 GM PACKET PO SCH (09:00)
[2019-08-11] MEDS ORDERED: PREGABALIN 75 MG CAPSULE PO SCH (09:00)
[2019-08-11] MEDS ORDERED: SENNOSIDES/DOCUSATE SODIUM 1 TAB TABLET PO SCH (09:00)
[2019-08-11] MEDS ORDERED: amLODIPine BESYLATE 5 MG TABLET PO SCH (09:00)
[2019-08-11] MEDS ORDERED: ALLOPURINOL 100 MG TABLET PO SCH (09:00)
[2019-08-11] MEDS ORDERED: POTASSIUM CHLORIDE 20 MEQ TABLET.SA PO SCH (09:00)
[2019-08-11] MEDS ORDERED: TORSEMIDE 20 MG TABLET PO SCH (09:00)
[2019-08-11] MEDS ORDERED: MEGESTROL ACETATE 40 MG TABLET PO SCH (09:00)
[2019-08-11] MEDS ORDERED: SERTRALINE HCL 50 MG TABLET PO SCH (09:15)
[2019-08-11] MEDS: CYCLOBENZAPRINE HCL 10 MG TABLET PO SCH (09:33)
[2019-08-11] MEDS: CARVEDILOL 12.5 MG TABLET PO SCH (09:33)
[2019-08-11] MEDS: APIXABAN 5 MG TABLET PO SCH (09:35)
[2019-08-11] MEDS: INSULIN GLARGINE,HUM.REC.ANLOG 100 UNITS/ML VIAL SC SCH (09:45)
[2019-08-11] MEDS: LIDOCAINE 1 PATCH ADH..PATCH TP SCH (09:52)
[2019-08-11 11:45] LABS: Urine Bilirubin Negative (NEGATIVE); Urine Blood 25 /ul (NEGATIVE); Urine Ketone Negative (NEGATIVE); Urine Nitrite Negative (NEGATIVE); Urine Protein 15 mg/dL (NEGATIVE); Urine Urobilinogen Normal (NORMAL); Urine pH 5.5 pH (5.0-7.0)
[2019-08-11 11:58] LABS: Urine Appearance Slightly Cloudy (CLEAR); Urine Color Yellow; Urine RBC TRACE /hpf (0-5); Urine WBC >50 /hpf (0-5)
[2019-08-11 11:59] LABS: Urine Bacteria 1+
[2019-08-11] MEDS ORDERED: DENTAL ADHESIVE 39 APPL TUBE TP SCH (12:15)
--- NOTE | 2019-08-11 12:48 | DS ---
(1) Atrial fibrillation with RVR Problem: Resolved (2) Depression Problem: Chronic (3) CKD (chronic kidney disease) stage 4, GFR 15-29 ml/min Problem: Chronic (4) Edema of both lower extremities Problem: Chronic (5) Hypothyroidism Problem: Chronic (6) Diabetes mellitus Problem: Chronic (7) Hypertension Problem: Chronic Qualifiers: (8) Obesity, Class III, BMI 40-49.9 (morbid obesity) Problem: Chronic (9) HTN (hypertension) Problem: Chronic Qualifiers: (10) Anxiety Problem: Chronic (11) Congestive heart failure Problem: Chronic Description of Stay: 73-year-old female with a past medical history of diabetes mellitus insulin- dependent, anxiety, depression, CKD 4, diastolic congestive heart failure, morbid obesity, stage IV renal cell cancer osteoarthritis, TIA, GERD, spinal stenosis, hypothyroidism presents from [facility] with complaints of shortness of breath x1 day. In the emergency department she was found to have A. fib with RVR, heart rate ranging from 120s to 140s. She was started on a Cardizem drip. Chest x-ray showed no acute cardiopulmonary abnormality. Blood work showed anemia with hemoglobin of 8.1, hematocrit 27 which is down from her baseline hemoglobin of 11 and hematocrit of 35. Blood glasses showed a pH of 7.41, PCO2 24.2, PO2 78.3, bicarb of 14.8, and O2 sat of 95.9. She is being admitted for management of her heart rate. Patient's casing tier is Dr. Byrnes was contacted by the emergency room physician was okay with the patient being admitted here for rate control. Her Cardizem was titrated up to 10 milliliters per hour and her heart rate was well controlled between 80 and 90 bpm. We titrated her off of the Cardizem drip at 1045 this morning. She has maintained a heart rate in the 80s and 90s. She is back on her regular home medications. I have started her on sertraline 25 mg for her depression. She will follow-up with me in 1 week. She is stable to be discharged back to [facility] today. Procedures Performed: none Results and Findings: Lab Pending Results 08/10/19 14:30: WBC 10.7 H, RBC 2.48 L, Hgb 8.1 L, Hct 27.0 L, MCV 108.9 H, MCH 32.7 H, MCHC 30.0 L, RDW 18.2 H, Plt Count 294, MPV 12.2, Immature Gran % (Auto) 0.70 H, Immature Gran # (Auto) 0.08 H, Neutrophils % 70.9, Lymphocytes % 13.4 L, Monocytes % 10.7 H, Eosinophils % 3.6 H, Basophils % 0.7, Nucleated RBC % 0.0, Neutrophils # 7.6 H, Lymphocytes # 1.43 L, Monocytes # 1.2 H, Eosinophils # 0.4, Absolute Basophils 0.1 08/10/19 14:30: Sodium 134, Plasma Sodium 137, Potassium 3.8, Chloride 102, Carbon Dioxide 19.2 L, Anion Gap 16.6 H, BUN 45 H, Creatinine 2.61 H, Est GFR (Non-Af Amer) 19 L, BUN/Creatinine Ratio 17.2, Random Glucose 303 H, Calcium 9.7, Calcium Adj for Albumin 10.5 H, Total Bilirubin 0.3, AST 10, ALT 12 L, Alkaline Phosphatase 130, Troponin I 0.058, B-Natriuretic Peptide 4908 H, Total Protein 6.8, Albumin 2.6 L 08/10/19 14:30: PT 12.7 H, INR (Anticoag Therapy) 1.30 H, PTT ([place]) 37.1 H 08/10/19 14:50: pCO2 24.2 L, pO2 78.3 L, HCO3 14.8 L, Total CO2 15.6 L, Base Excess -8.7 L, ABG pH 7.41, ABG O2 Sat (Measured) 95.9 08/11/19 06:40: WBC 16.7 H D, RBC 2.54 L, Hgb 8.4 L, Hct 27.3 L, MCV 107.5 H, MCH 33.1 H, MCHC 30.8 L, RDW 18.0 H, Plt Count 333, MPV 12.4, Immature Gran % (Auto) 0.70 H, Immature Gran # (Auto) 0.12 H, Neutrophils % 78.4 H, Lymphocytes % 10.4 L, Monocytes % 8.6, Eosinophils % 1.4, Basophils % 0.5, Nucleated RBC % 0.0, Neutrophils # 13.1 H, Lymphocytes # 1.73, Monocytes # 1.4 H, Eosinophils # 0.2, Absolute Basophils 0.1 08/11/19 06:40: Sodium 133, Plasma Sodium 135, Potassium 4.1, Chloride 102, Carbon Dioxide 18.0 L, Anion Gap 17.1 H, BUN 47 H, Creatinine 2.66 H, Est GFR (Non-Af Amer) 19 L, BUN/Creatinine Ratio 17.7, Random Glucose 253 H, Calcium 9.7, Calcium Adj for Albumin 10.3 H, Total Bilirubin 0.7, AST 11, ALT 12 L, Alkaline Phosphatase 124, Total Protein 7.3, Albumin 2.8 L Discharge Location: [facility] Disposition: Intermediate Care Facility ICF Condition: Fair Level of Care: ICF Discharge Activity: Activity as tolerated Discharge Diet: Consistent carbs, Low salt Referrals: Cassie Weathers MD [Primary Care Provider] - Problem Oriented Discharge Instructions to Patient/Family: Atrial Fibrillation, [id number] Prescriptions (Any new or edited meds): Sertraline HCl [Zoloft] 25 mg PO DAILY #90 tab Transmission Status: Pending to Right [facility] Complete Home Medications List: Complete Home Medication List: Acetaminophen [Tylenol] 1,000 mg PO Q8H PRN 11/24/18 Albuterol Sulfate [Proair Respiclick] 2 puff INHALATION Q6H PRN 11/24/18 Cyclobenzaprine HCl 5 mg PO BID 11/24/18 Lidocaine [Lidocaine Pain Relief] 1 ea TOPICAL BID 11/24/18 Multivitamin [One-Daily Multi-Vitamin] 1 tab PO DAILY 11/24/18 Polyethylene Glycol 3350 [Miralax] 17 gm PO DAILY 11/24/18 Sennosides/Docusate Sodium [Senna-S Laxative Tablet] 2 tab PO BID 11/24/18 amLODIPine BESYLATE [Norvasc] 5 mg PO DAILY 11/24/18 apixaban 5 mg tablet 5 mg PO BID #1 tab 12/12/18 levothyroxine 100 mcg tablet 100 mcg PO DAILY #1 tab 12/12/18 fluticasone propionate 50 mcg/actuation nasal spray,suspension 1 spray ELVIS DAILY 02/21/19 Magnesium Hydroxide [Milk Of Magnesia] 30 ml PO DAILY PRN 05/10/19 Menthol [Biofreeze] 1 appl TOPICAL Q4H PRN 05/10/19 Menthol [Connell Cough Drops] 1 alvin MM Q2H PRN 05/10/19 allopurinol 100 mg tablet 100 mg PO DAILY 05/23/19 cholecalciferol (vitamin D3) 50,000 unit tablet 50,000 unit PO QWEEK 05/23/19 omeprazole 40 mg capsule,delayed release 40 mg PO DAILY 05/23/19 insulin detemir U-100 100 unit/mL (3 mL) subcutaneous pen 55 unit SUBCUT BID ml 06/27/19 insulin regular human 100 unit/mL injection solution 35 sliding scale dose SUBCUT TID ml 06/27/19 potassium chloride 10 mEq tablet,extended release(part/cryst) 50 meq PO DAILY tab 06/27/19 atorvastatin 40 mg tablet 40 mg PO DAILY 07/28/19 megestrol 40 mg tablet 40 mg PO DAILY 07/28/19 melatonin 5 mg tablet 5 mg PO HS 07/28/19 torsemide 100 mg tablet 40 mg PO DAILY 07/28/19 Doxycycline Hyclate [Vibratab] 100 mg PO BID #20 tab 07/31/19 Carvedilol [Coreg] 12.5 mg PO BID 08/10/19 Insulin Regular, Human [Humulin R] See Protocol IJ TID 08/10/19 Ondansetron [Zofran Odt] 4 mg PO Q8H PRN 08/10/19 Pregabalin 75 mg PO DAILY 08/10/19 Prochlorperazine Maleate [Compazine] 10 mg PO QID PRN 08/10/19 guaiFENesin/DEXTROMETHORPHAN [Robitussin-Dm] 10 ml PO Q4H PRN 08/10/19 hydrOXYzine HCL [Atarax] 25 mg PO Q8H PRN 08/10/19 Dental Adhesive [Fixodent Denture Adhesive] 1 appl TOPICAL DAILY tube 08/11/19 Sertraline HCl [Zoloft] 25 mg PO DAILY #90 tab 08/11/19
[2019-08-11 13:35] VITALS: BP 143/69
== END 2019-08-11 14:30 ==
LOC: SCU 14:03 → ER 14:03 → SCU 17:20
PROVIDERS: ADMIT Internal Medicine; ATTEND Internal Medicine
CPT/HCPCS: 36415; 36600; 71010; 71045; 80053; 81001; 82803; 83519; 83880; 84484; 85025; 85610; 85730; 87040; 87077; 87081; 87086; 87186; 93005; 94760; 96365; 96366; 96372; 96375; 99285; G0378